=== PATIENT | female | born 1955 | race Caucasian/White ===

== ENCOUNTER → 2017-05-02 12:44 | Outpatient (CLI) | payer MEDICARE, SELFPAY ==
[2017-05-02 14:17] LABS: Absolute Lymphocyte Count 2.21 X10^3/ul (0.83-4.51); Absolute Neutrophil Count 3.6 X10^3/uL (2.0-7.7); Basophil# 0.05 X10^3/uL; Basophil% 0.7 % (0-1); Eosinophil# 0.59 X10^3/uL; Eosinophils% 8.2 % (0-5); Hematocrit 41.3 % (37-47); Hemoglobin 13.6 g/dl (12.0-15.0); Lymphocyte # 2.21 X10^3/ul (4.0); Lymphocyte % 30.8 % (19-41); Mean Corp Hgb Conc 32.9 g/gl (32-36); Mean Corpuscular Hgb 31.4 pg (27.0-32.0); Mean Corpuscular Volume 95.4 fL (81-99); Monocyte# 0.67 X10^3/uL; Monocyte% 9.3 % (0-10); Neutrophil # 3.63 X10^3/uL (2.7-7.7); Neutrophil % 50.7 % (47-70); Platelet Count 223 K/mm3 (150-450); RBC Distribution Width CV 12.7 % (11.6-14.6); RBC Distribution Width SD 43.9 fl (35.1-43.9); Red Blood Count 4.33 M/mm3 (4.2-5.4); White Blood Count 7.2 K/mm3 (4.4-11.0)
[2017-05-02 14:22] LABS: POSITIVE COUNT NO; POSITIVE DIFFERENTIAL NO; POSITIVE MORPHOLOGY NO
[2017-05-02 14:45] LABS: ALB/GLOB Ratio 0.8 RATIO (0.9-2.4); AST(SGOT) 14 U/L (15-37); Alanine Aminotransfer ALT/SGPT 24 U/L (13-56); Albumin, Serum 3.5 g/dL (3.2-5.0); Alkaline Phosphatase 66 U/L (45-117); Anion Gap 7 (5-15); BUN 14 mg/dL (7-18); BUN/Creat Ratio 13.9 RATIO (10-20); Calcium,Total 8.7 mg/dL (8.5-10.1); Chloride 110 mmol/L (98-107); Creatinine, Serum 1.01 mg/dL (0.55-1.02); EST Glomerular Filtration Rate 59 mL/min (>60); Est Glom Filt Rate - Afr Amer 71 mL/min (>60); Globulin 4.2 g/dL (2.2-4.2); Glucose 100 mg/dL (74-106); Potassium 4.3 mmol/L (3.5-5.1); Protein, Total 7.7 g/dL (6.4-8.2); Sodium Level 140 mmol/L (136-145)
== END ==
PROVIDERS: Family Provider Internal Medicine Infectious Disease; PCP Internal Medicine Infectious Disease; Visit Provider Internal Medicine Rheumatology
DX: M06.89 Other specified rheumatoid arthritis, multiple sites (principal); M79.7 Fibromyalgia; G56.01 Carpal tunnel syndrome, right upper limb; M18.12 Unilateral primary osteoarthritis of first carpometacarpal joint, left hand; Z79.899 Other long term (current) drug therapy
CPT/HCPCS: 36415; 80053; 85025

== ENCOUNTER → 2017-07-04 10:41 | Outpatient (CLI) | payer MEDICARE, SELFPAY ==
[2017-07-04 11:25] LABS: Absolute Lymphocyte Count 2.06 X10^3/ul (0.83-4.51); Absolute Neutrophil Count 3.5 X10^3/uL (2.0-7.7); Basophil# 0.09 X10^3/uL; Basophil% 1.3 % (0-1); Eosinophil# 0.47 X10^3/uL; Eosinophils% 6.7 % (0-5); Hematocrit 38.7 % (37-47); Hemoglobin 12.9 g/dl (12.0-15.0); Lymphocyte # 2.06 X10^3/ul (4.0); Lymphocyte % 29.4 % (19-41); Mean Corp Hgb Conc 33.3 g/gl (32-36); Mean Corpuscular Hgb 31.5 pg (27.0-32.0); Mean Corpuscular Volume 94.4 fL (81-99); Mean Platelet Vol. 10.3 fl (6.2-12.0); Monocyte# 0.88 X10^3/uL; Monocyte% 12.6 % (0-10); Neutrophil # 3.48 X10^3/uL (2.7-7.7); Neutrophil % 49.7 % (47-70); Platelet Count 231 K/mm3 (150-450); RBC Distribution Width CV 12.7 % (11.6-14.6)
[2017-07-04 11:28] LABS: Differential Indicated SCAN CRITERIA MET; POSITIVE COUNT NO; POSITIVE DIFFERENTIAL NO; POSITIVE MORPHOLOGY YES
[2017-07-04 11:47] LABS: ALB/GLOB Ratio 0.9 RATIO (0.9-2.4); AST(SGOT) 16 U/L (15-37); Alanine Aminotransfer ALT/SGPT 20 U/L (13-56); Albumin, Serum 3.6 g/dL (3.2-5.0); Alkaline Phosphatase 66 U/L (45-117); Anion Gap 4 (5-15); BUN 14 mg/dL (7-18); BUN/Creat Ratio 13.5 RATIO (10-20); Calcium,Total 8.8 mg/dL (8.5-10.1); Chloride 110 mmol/L (98-107); Creatinine, Serum 1.04 mg/dL (0.55-1.02); EST Glomerular Filtration Rate 57 mL/min (>60); Est Glom Filt Rate - Afr Amer 69 mL/min (>60); Globulin 3.9 g/dL (2.2-4.2); Glucose 84 mg/dL (74-106); Potassium 3.9 mmol/L (3.5-5.1); Protein, Total 7.5 g/dL (6.4-8.2); Sodium Level 139 mmol/L (136-145)
== END ==
PROVIDERS: Family Provider Internal Medicine Infectious Disease; PCP Internal Medicine Infectious Disease; Visit Provider Internal Medicine Rheumatology
DX: M06.09 Rheumatoid arthritis without rheumatoid factor, multiple sites (principal); M79.7 Fibromyalgia; G56.01 Carpal tunnel syndrome, right upper limb; M18.12 Unilateral primary osteoarthritis of first carpometacarpal joint, left hand; K21.0 Gastro-esophageal reflux disease with esophagitis; I10 Essential (primary) hypertension; E11.9 Type 2 diabetes mellitus without complications; F41.9 Anxiety disorder, unspecified; E78.5 Hyperlipidemia, unspecified; K57.90 Diverticulosis of intestine, part unspecified, without perforation or abscess without bleeding; I25.10 Atherosclerotic heart disease of native coronary artery without angina pectoris; G62.9 Polyneuropathy, unspecified; Z79.899 Other long term (current) drug therapy
CPT/HCPCS: 36415; 80053; 85025

== ENCOUNTER → 2017-10-02 13:37 | Outpatient (CLI) | payer MEDICARE, SELFPAY ==
[2017-10-02 13:59] LABS: Absolute Lymphocyte Count 1.93 X10^3/ul (0.83-4.51); Absolute Neutrophil Count 4.3 X10^3/uL (2.0-7.7); Basophil# 0.05 X10^3/uL; Basophil% 0.7 % (0-1); Eosinophil# 0.42 X10^3/uL; Eosinophils% 5.7 % (0-5); Hematocrit 37.1 % (37-47); Hemoglobin 12.3 g/dl (12.0-15.0); Lymphocyte # 1.93 X10^3/ul (4.0); Lymphocyte % 26.2 % (19-41); Mean Corp Hgb Conc 33.2 g/gl (32-36); Mean Corpuscular Hgb 30.8 pg (27.0-32.0); Monocyte# 0.65 X10^3/uL; Monocyte% 8.8 % (0-10); Neutrophil # 4.32 X10^3/uL (2.7-7.7); Neutrophil % 58.5 % (47-70); POSITIVE COUNT NO; POSITIVE DIFFERENTIAL NO; POSITIVE MORPHOLOGY NO; Platelet Count 224 K/mm3 (150-450); RBC Distribution Width CV 12.6 % (11.6-14.6); Red Blood Count 3.99 M/mm3 (4.2-5.4); White Blood Count 7.4 K/mm3 (4.4-11.0)
[2017-10-02 15:01] LABS: ALB/GLOB Ratio 0.9 RATIO (0.9-2.4); AST(SGOT) 12 U/L (15-37); Alanine Aminotransfer ALT/SGPT 18 U/L (13-56); Albumin, Serum 3.4 g/dL (3.2-5.0); Alkaline Phosphatase 74 U/L (45-117); Anion Gap 7 (5-15); BUN 11 mg/dL (7-18); Calcium,Total 8.6 mg/dL (8.5-10.1); Chloride 112 mmol/L (98-107); Creatinine, Serum 0.92 mg/dL (0.55-1.02); EST Glomerular Filtration Rate 66 mL/min (>60); Est Glom Filt Rate - Afr Amer 80 mL/min (>60); Globulin 3.9 g/dL (2.2-4.2); Glucose 79 mg/dL (74-106); Potassium 3.9 mmol/L (3.5-5.1); Protein, Total 7.3 g/dL (6.4-8.2); Sodium Level 146 mmol/L (136-145)
== END ==
PROVIDERS: Family Provider Internal Medicine Infectious Disease; PCP Internal Medicine Infectious Disease; Visit Provider Internal Medicine Rheumatology
DX: M06.09 Rheumatoid arthritis without rheumatoid factor, multiple sites (principal); M79.7 Fibromyalgia; G56.01 Carpal tunnel syndrome, right upper limb; M18.12 Unilateral primary osteoarthritis of first carpometacarpal joint, left hand; K21.0 Gastro-esophageal reflux disease with esophagitis; Z79.899 Other long term (current) drug therapy
CPT/HCPCS: 36415; 80053; 85025

== ENCOUNTER → 2018-04-02 15:11 | Outpatient (CLI) | payer MEDICARE, SELFPAY ==
--- NOTE | 2018-04-02 15:18 | RAD_ITS ---
STUDY: X-RAY - RIGHT SHOULDER REASON FOR EXAM: Rheumatoid arthritis. TECHNIQUE: 4 view(s) of the shoulder. COMPARISON: None. FINDINGS: Normal glenohumeral articulation. There is mild acromioclavicular arthrosis. Normal acromion. Normal humeral head and visualized proximal humerus. The soft tissue structures are unremarkable. Normal visualized pulmonary apex. RAD/Shoulder min 2 Views IMPRESSION: Mild acromioclavicular arthrosis. Electronically Signed: Fredis Flynn MD at 15:33 EST Tel , Service support ,
[2018-04-02 17:57] LABS: Absolute Lymphocyte Count 1.81 X10^3/ul (0.83-4.51); Absolute Neutrophil Count 4.1 X10^3/uL (2.0-7.7); Basophil# 0.07 X10^3/uL; Eosinophils% 8.2 % (0-5); Hematocrit 38.3 % (37-47); Hemoglobin 12.2 g/dl (12.0-15.0); Lymphocyte # 1.81 X10^3/ul (4.0); Lymphocyte % 24.7 % (19-41); Mean Corp Hgb Conc 31.9 g/gl (32-36); Mean Corpuscular Volume 94.1 fL (81-99); Mean Platelet Vol. 10.5 fl (6.2-12.0); Monocyte# 0.79 X10^3/uL; Monocyte% 10.8 % (0-10); Neutrophil # 4.05 X10^3/uL (2.7-7.7); Neutrophil % 55.2 % (47-70); Platelet Count 218 K/mm3 (150-450); RBC Distribution Width SD 44.8 fl (35.1-43.9); Red Blood Count 4.07 M/mm3 (4.2-5.4); White Blood Count 7.3 K/mm3 (4.4-11.0)
[2018-04-02 18:01] LABS: POSITIVE COUNT NO; POSITIVE DIFFERENTIAL NO; POSITIVE MORPHOLOGY NO
[2018-04-02 18:04] LABS: AST(SGOT) 8 U/L (15-37); Alanine Aminotransfer ALT/SGPT 13 U/L (13-56); Albumin, Serum 3.6 g/dL (3.2-5.0); Alkaline Phosphatase 76 U/L (45-117); Anion Gap 9 (5-15); BUN 13 mg/dL (7-18); BUN/Creat Ratio 14.8 RATIO (10-20); Calcium,Total 8.9 mg/dL (8.5-10.1); Chloride 110 mmol/L (98-107); Creatinine, Serum 0.88 mg/dL (0.55-1.02); EST Glomerular Filtration Rate 69 mL/min (>60); Est Glom Filt Rate - Afr Amer 84 mL/min (>60); Globulin 3.6 g/dL (2.2-4.2); Glucose 68 mg/dL (74-106); Protein, Total 7.2 g/dL (6.4-8.2); Sodium Level 145 mmol/L (136-145)
[2018-04-05 03:07] LABS: QNTFERON TB Mitogen Value > 10.00 IU/mL (.); QNTFERON TB Nil Value 0.06 IU/mL (.); QNTFERON TB1+ Ag Value 0.05 IU/mL (.); QNTFERON TB2+ Ag Value 0.05 IU/mL (.)
[2018-04-07 09:08] LABS: QNTIFERON TB Positive Criteria Negative (Negative)
--- OUTSIDE RECORDS SUMMARY | 2018-06-04 17:45 | XMS RPT_ITS ---
:1955 Author Organization OHIP Support Name Relationship Address Phone JUAN BAILEY Unavailable [address] [place] [id number] CYN MAURICE Unavailable Unavailable + NOT GIVEN Unavailable Unavailable Unavailable D Unavailable Unavailable Unavailable JUAN BAILEY Unavailable [address] + [place] [address] JUAN BAILEY Unavailable [address] [place] [facility] [id number] KAYLENE CYN Unavailable Unavailable + NOT GIVEN Unavailable Unavailable Unavailable JUAN BAILEY Unavailable [address] [place] [id number] KAYLENE CYN Unavailable Unavailable + NOT GIVEN Unavailable Unavailable Unavailable NOT GIVEN Unavailable Unavailable Unavailable NOT GIVEN Unavailable Unavailable Unavailable JUAN BAILEY Unavailable [address] [place] [address] KAYLENE CYN Unavailable Unavailable + NOT GIVEN Unavailable Unavailable Unavailable JUAN BAILEY Unavailable [address] [place] [address] KAYLENE CYN Unavailable Unavailable + NOT GIVEN Unavailable Unavailable Unavailable D Unavailable Unavailable Unavailable JUAN BAILEY Unavailable [address] + [place] [address] JUAN BAILEY Unavailable [address] [place] [address] KAYLENE CYN Unavailable Unavailable + NOT GIVEN Unavailable Unavailable Unavailable JUAN BAILEY Unavailable [address] [place] [address] KAYLENE CYN Unavailable Unavailable + NOT GIVEN Unavailable Unavailable Unavailable JUAN BAILEY Unavailable [address] Unavailable [facility] [place] [address] KAYLENE CYN Unavailable Unavailable + NOT GIVEN Unavailable Unavailable Unavailable D Unavailable Unavailable Unavailable JUAN BAILEY Unavailable [address] + [place] [address] D Unavailable Unavailable Unavailable JUAN BAILEY Unavailable [address] + [place] [address] JUAN BAILEY Unavailable [address] [place] [address] CYN MAURICE Unavailable Unavailable + NOT GIVEN Unavailable Unavailable Unavailable Care Team Providers Name Role Phone DR RIZWAN ROSS Admitting Unavailable VANDANA, DR RIZWAN Griffith Attending Unavailable DR RIZWAN ROSS Primary Care Unavailable RUFINA GERARD MD Consulting Unavailable PROVIDER, UNKNOWN Consulting Unavailable PROVIDER, UNKNOWN Consulting Unavailable PROVIDER, UNKNOWN Consulting Unavailable RUFINA GERARD MD Admitting Unavailable RUFINA GERARD MD Attending Unavailable RUFINA GERARD MD Primary Care Unavailable RUFINA GERARD MD Consulting Unavailable PROVIDER, UNKNOWN Consulting Unavailable PROVIDER, UNKNOWN Consulting Unavailable PROVIDER, UNKNOWN Consulting Unavailable RUFINA GERARD MD Admitting Unavailable RUFINA GERARD MD Attending Unavailable RUFINA GERARD MD Primary Care Unavailable RUFINA GERARD MD Consulting Unavailable PROVIDER, UNKNOWN Consulting Unavailable PROVIDER, UNKNOWN Consulting Unavailable PROVIDER, UNKNOWN Consulting Unavailable RUFINA GERARD MD Admitting Unavailable RUFINA GERARD MD Attending Unavailable RUFINA GERARD MD Primary Care Unavailable RUFINA GERARD MD Consulting Unavailable PROVIDER, UNKNOWN Consulting Unavailable PROVIDER, UNKNOWN Consulting Unavailable PROVIDER, UNKNOWN Consulting Unavailable RUFINA GERARD MD Referring Unavailable RUFINA GERARD MD Admitting Unavailable RUFINA GERARD MD Attending Unavailable RUFINA GERARD MD Primary Care Unavailable RUFINA GERARD MD Consulting Unavailable PROVIDER, UNKNOWN Consulting Unavailable PROVIDER, UNKNOWN Consulting Unavailable PROVIDER, UNKNOWN Consulting Unavailable JAMAL REYES MD Admitting Unavailable JAMAL REYES MD Attending Unavailable JAMAL REYES MD Primary Care Unavailable RUFINA GERARD MD Consulting Unavailable PROVIDER, UNKNOWN Consulting Unavailable PROVIDER, UNKNOWN Consulting Unavailable PROVIDER, UNKNOWN Consulting Unavailable ADILENE WARREN MD Admitting Unavailable ADILENE WARREN MD Attending Unavailable ADILENE WARREN MD Primary Care Unavailable RUFINA GERARD MD Consulting Unavailable PROVIDER, UNKNOWN Consulting Unavailable PROVIDER, UNKNOWN Consulting Unavailable PROVIDER, UNKNOWN Consulting Unavailable JAMAL REYES MD Admitting Unavailable JAMAL REYES MD Attending Unavailable JAAML REYSE MD Primary Care Unavailable RUFINA GERARD MD Consulting Unavailable PROVIDER, UNKNOWN Consulting Unavailable PROVIDER, UNKNOWN Consulting Unavailable PROVIDER, UNKNOWN Consulting Unavailable ADILENE WARREN MD Admitting Unavailable ADILENE WARREN MD Attending Unavailable ADILENE WARREN MD Primary Care Unavailable ADILENE WARREN MD Consulting Unavailable PROVIDER, UNKNOWN Consulting Unavailable PROVIDER, UNKNOWN Consulting Unavailable PROVIDER, UNKNOWN Consulting Unavailable FELICIA GODINEZ Admitting Unavailable FELICIA GODINEZ Attending Unavailable ADILENE WARREN MD Referring Unavailable FELICIA GODINEZ Primary Care Unavailable ADILENE WARREN MD Consulting Unavailable PROVIDER, UNKNOWN Consulting Unavailable PROVIDER, UNKNOWN Consulting Unavailable PROVIDER, UNKNOWN Consulting Unavailable RUFINA GERARD MD Consulting Unavailable ADILENE WARREN MD Admitting Unavailable ADILENE WARREN MD Attending Unavailable ADILENE WARREN MD Primary Care Unavailable PROVIDER, UNKNOWN Consulting Unavailable PROVIDER, UNKNOWN Consulting Unavailable PROVIDER, UNKNOWN Consulting Unavailable Jamal Reyes Attending Unavailable Jamal Reyes Referring Unavailable OMRAN, YASSER Primary Care Unavailable Jamal Reyes Attending Unavailable Alvinlangurdeep, Jamal Referring Unavailable OMRAN, YASSER Primary Care Unavailable Jamal Reyes Attending Unavailable Alvinlangurdeep, Jamal Referring Unavailable OMRAN, YASSER Primary Care Unavailable Jamal Reyes Attending Unavailable Vellangurdeep, Jamal Referring Unavailable OMRAN, YASSER Primary Care Unavailable PROBLEMS PROBLEMS DATE TYPE CONDITION / CODE ATTENDING STATUS SOURCE 04/02/2018 Unknown M06.09 - Rheumatoid Eric, Active [place] arthritis without [facility] rheumatoid factor, Hospital multiple sites / Repository M06.09(ICD-10) 04/02/2018 Unknown Z79.899 - Other long Alvinlangurdeep, Active [place] term (current) drug [facility] therapy / Hospital Z79.899(ICD-10) Repository 04/02/2018 Unknown M79.7 - Fibromyalgia Alvinlangurdeep, Active [facility] / M79.7(ICD-10) [facility] Hospital Repository 04/02/2018 Unknown M18.12 - Unilateral Vellanki, Active [place] primary [facility] osteoarthritis of Hospital first Repository carpometacarpal joint, left hand / M18.12(ICD-10) 04/02/2018 Unknown K21.0 - Vellangurdeep, Active [place] Gastro-esophageal [facility] reflux disease with Hospital esophagitis / Repository K21.0(ICD-10) 04/02/2018 Unknown I10 - Essential Vellanki, Active [facility] (primary) [facility] hypertension / Hospital I10(ICD-10) Repository 04/02/2018 Unknown E11.9 - Type 2 Vellanki, Active [place] diabetes mellitus [facility] without Hospital complications / Repository E11.9(ICD-10) 04/02/2018 Unknown F41.9 - Anxiety Vellanki, Active [place] disorder, [facility] unspecified / Hospital F41.9(ICD-10) Repository 03/14/2018 Secondary Type 2 diabetes LATOUF, BUTROS Active Daniel [facility] Diagnosis mellitus without [facility] complications / Hospital E119(ICD-10) Repository 03/14/2018 Principle Essential (primary) LATOUF, BUTROS Active Daniel [facility] Diagnosis hypertension / [facility] I10(ICD-10) Hospital Repository 03/14/2018 Secondary Hyperlipidemia, LATOUF, BUTROS Active [facility] Diagnosis unspecified / [facility] E785(ICD-10) Hospital Repository 03/14/2018 Principle Type 2 diabetes OMJOSEFINA, AMARJITER Active [facility] Diagnosis mellitus without [facility] complications / Hospital E119(ICD-10) Repository 03/14/2018 Secondary Mixed hyperlipidemia OMRAN, YASSER Active [facility] Diagnosis / E782(ICD-10) [facility] Hospital Repository 10/17/2017 Admitting Chest pain, OMRAN, YASSER Active [facility] Diagnosis unspecified / [facility] R079(ICD-10) Hospital Repository 10/17/2017 Principle Chest pain, OMRAN, YASSER Active [facility] Diagnosis unspecified / [facility] R079(ICD-10) Hospital Repository 09/17/2017 Admitting Encounter for OMRAN, YASSER Active [facility] Diagnosis screening mammogram [facility] malignant Hospital neoplasm of breast / Repository Z1231(ICD-10) 09/17/2017 Principle Encounter for OMRAN, YASSER Active [facility] Diagnosis screening mammogram [facility] malignant Hospital neoplasm of breast / Repository Z1231(ICD-10) 08/07/2017 Admitting Pain in right ROSS, DR REEVES Active [facility] Diagnosis shoulder / [facility] L70626(ICD-10) Hospital Repository 08/07/2017 Principle Radiculopathy, ROSS, DR REEVES Active Daniel Ledezma Diagnosis cervical region / [facility] M5412(ICD-10) Hospital Repository 08/07/2017 Secondary Chronic obstructive VANDANA, DR REEVES Active Daniel Ledezma Diagnosis pulmonary disease, [facility] unspecified / Hospital J449(ICD-10) Repository 08/07/2017 Secondary Personal history of VANDANA, DR REEVES Active Daniel Ledezma Diagnosis nicotine dependence [facility] / E06613(ICD-10) Hospital Repository 08/07/2017 Secondary Atherosclerotic ROSS, 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 right upper limb / Hospital G56.01(ICD-10) Repository 07/04/2017 Unknown E78.5 - Vellanki, Active [place] Hyperlipidemia, 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 unspecified / Hospital G62.9(ICD-10) Repository PROCEDURES PROCEDURES No Procedure Records FoundRESULTS RESULTS URINALYSIS Collected: 04/06/2018 Status: F Source: [facility] 9:05 PM [facility] REPOSITORY TYPE CODE TESTS RESULT OUT OF REFERENCE UNITS RANGE LAB URINALYSIS (LOINC) URINALYSIS Result Comment: URINALYSIS LAB Specimen Type(LOINC) Specimen Type Void LAB Color(LOINC) NORMAL: YELLOW Color YELLOW LAB Clarity(LOINC) NORMAL: CLEAR Clarity clear LAB ph(LOINC) NORMAL: 5.0-8.0 ph 5 LAB Protein(LOINC) NORMAL: NEGATIVE Protein NEG LAB Glucose(LOINC) NORMAL: NORMAL Glucose NORM LAB Ketone(LOINC) NORMAL: NEGATIVE Ketone NEG LAB Bilirubin(LOINC) NORMAL: NEGATIVE Bilirubin NEG LAB Blood(LOINC) NORMAL: NEGATIVE Blood NEG LAB Urobilinog(LOINC) NORMAL: NORMAL Urobilinog NORM LAB Sp [place](LOINC) NORMAL: 1.010-1.030 Sp [place] 1.010 LAB Nitrite(LOINC) NORMAL: NEGATIVE Nitrite NEG LAB Leukocytes(LOINC) NORMAL: NEGATIVE Leukocytes Abnormal 100 LAB Microscopic(LOINC ) Microscopic SEE BELOW Result Comment: MICROSCOPIC LAB Wbc(LOINC) 0-5/hpf Wbc 6-10 LAB Rbc(LOINC) 0-3/hpf Rbc NONE LAB Casts(LOINC) Casts NONE LAB Crystals(LOINC) Crystals NONE LAB Amorphous(LOINC) NONE Amorphous LAB Bacteria(LOINC) Bacteria TRACE LAB Epi Cells(LOINC) Epi Cells MODERATE LAB Mucous(LOINC) Mucous TRACE LAB Yeast(LOINC) Yeast NONE Performed By: #### [id number] #### [facility],[address] [place] [address] CBC Collected: 04/06/2018 Status: F Source: [facility] 6:45 PM [facility] REPOSITORY TYPE CODE TESTS RESULT OUT OF RANGE REFERENCE UNITS LAB CBC(LOINC) CBC Result Comment: CBC-COMPLETE BLOOD COUNT LAB WBC(LOINC) 4.5 - 10.8 x 10EE3/UL WBC 10.5 LAB RBC(LOINC) 4.10 - x 10EE6/UL 5.30 RBC 4.13 LAB HEMOGLOBIN(LOINC) 12.0 - g/dl 16.0 HEMOGLOBIN 12.6 LAB HEMATOCRIT(LOINC) 34.0 - % 46.0 HEMATOCRIT 37.1 LAB MCV(LOINC) 80 - 99 fl MCV 90 LAB MCH(LOINC) 27 - 33 pg MCH 30 LAB MCHC(LOINC) 32 - 36 X10 3 MCHC 34 LAB RDW/CV(LOINC) 12.0 - % 15.6 RDW/CV 13.6 LAB PLATELET(LOINC) 150 - 450 x10EE3/UL PLATELET 265 LAB MPV(LOINC) 6.6 - 10.5 fl MPV 8.4 Result Comment: AUTOMATED DIFFERENTIAL LAB NEUT %(LOINC) 46.0 - 76.0 % NEUT % 62.1 LAB LYMPH %(LOINC) 20.0 - 45.0 % Low LYMPH % 19.0 LAB MONOS %(LOINC) 0.0 - 10.0 % MONOS % 9.4 LAB EO %(LOINC) 0.0 - 7.0 % EO % High 8.7 LAB BASO %(LOINC) 0.0 - 2.0 % BASO % 0.8 LAB Lymph #(LOINC) 0.80 - 2.80 x10EE3/U L Lymph # 2.00 LAB Neut #(LOINC) 1.50 - 7.10 x10EE3/U L Neut # 6.50 LAB [place] #(LOINC) 0.20 - 1.00 x10EE3/U L [place] # 1.00 LAB EO #(LOINC) 0.00 - 0.50 x10EE3/U L EO # High 0.90 LAB Baso #(LOINC) 0.00 - 0.10 x10EE3/U L Baso # 0.10 LAB MANUAL DIFF(LOINC) MANUAL DIFF N/A LAB MORPHOLOGY(LOINC ) MORPHOLOGY N/A Result Comment: {CD] Performed By: #### [id number] #### [facility],[address] [place] [address] BMP WITH EGFR Collected: 04/06/2018 Status: F Source: [facility] 6:45 PM [facility] REPOSITORY TYPE CODE TESTS RESULT OUT OF RANGE REFERENCE UNITS LAB BMP with eGFR(LOINC) BMP with eGFR Result Comment: BASIC METABOLIC PANEL LAB SODIUM(LOINC) 136 - 145 mmol/l SODIUM 139 LAB POTASSIUM(LOINC) 3.5 - 5.1 mmol/L POTASSIUM 3.8 LAB CHLORIDE(LOINC) 98 - 107 mmol/L CHLORIDE High 110 LAB CO2(LOINC) 21.0 - mmol/L 31.0 CO2 Low 20.7 LAB GLUCOSE(LOINC) 74 - 106 mg/dl GLUCOSE 82 LAB BUN(LOINC) 6 - 20 mg/dl BUN High 23 LAB CREATININE(LOINC) 0.6 - 1.2 mg/dl CREATININE 0.8 LAB CALCIUM(LOINC) 8.6 - mg/dl 10.2 CALCIUM 9.3 LAB ANION GAP(LOINC) 10 - 20 mmol/L ANION GAP 12 LAB AGE(LOINC) years AGE 63 LAB eGFR(LOINC) 60 - 999 ML/MINUTE eGFR >60 LAB eGFR(AA)(LOINC) 60 - 999 ML/MINUTE eGFR(AA) >60 Result Comment: ACCORDING TO THE NATIONAL KIDNEY DISEASE EDUCATION PROGRAM(NKDE), A NORMAL eGFR IS A VALUE GREATER THAN OR EQUAL TO 60 ML/MIN/1.73 SQ METERS. CHRONIC KIDNEY DISEASE: <60mL/MIN/1.73 SQ METERS KIDNEY FAILURE: <15mL/MIN/1.73 SQ METERS THIS TEST SHOULD ONLY BE USED FOR PATIENTS 18 YEARS OF AGE AND OLDER. Performed By: #### [id number] #### [facility],[address] [place] [address] CT KUB (KIDNEY STONE Observed: 04/06/2018 Status: F Source: [facility] PROTOCOL) 6:38 PM [place] [address] Patient: SHANIA BAILEY Phone#: : 1955 Age: 63 Gender: F Pt. Type: ER Account: [id number] Location: [facility] Ordering: DR. FELICIA MAR Exam Date: 04/06/2018/18:31 Family Phys: ADILENE WARREN Charge Code: 723654 Physician: Glenn Order #: [id number] DLP Dose#: PROCEDURE: CT ABDOMEN AND PELVIS WITHOUT CONTRAST COMPARISON: [facility], CT, KUB W/O CON, 08/31/2013, 15:50. INDICATIONS: Flank pain TECHNIQUE: After obtaining the patient's consent, CT images of the abdomen and pelvis were created without non-ionic intravenous contrast material. All CT scans at this facility use dose modulation, iterative reconstruction, and/or weight based dosing when appropriate to reduce radiation dose to as low as reasonably achievable. IV CONTRAST: No IV contrast used,ml TOTAL DOSE: 14.9 CTDIvol(mGy) FINDINGS: Evaluation of the solid organs and soft tissues is limited without intravenous contrast. KIDNEYS: No nephrolithiasis or hydronephrosis. The kidneys are unremarkable in contour. ADRENALS: Normal. No mass or enlargement. URINARY BLADDER: Urinary bladder is decompressed. LIVER: Unremarkable in contour. BILIARY: Gallbladder is absent, surgical clips are in the gallbladder fossa. PANCREAS: Unremarkable in contour. SPLEEN: Unremarkable in contour. AORTA/VASCULAR: No aortic aneurysm. There is stable ectasia of the distal infrarenal aorta. There are atherosclerotic calcifications of the aorta and branch vessels. RETROPERITONEUM: Limited evaluation for adenopathy in the absence of contrast though none identified. BOWEL/MESENTERY: No bowel obstruction or dilatation. Moderate degree of stool throughout the colon. Continued Report - Page 2 of 2 Patient: SHANIA BAILEY Phone#: : 1955 Age: 63 Gender: F Pt. Type: ER Account: [id number] Location: 052 Ordering: DR. FELICIA MAR Exam Date: 04/06/2018/18:31 Family Phys: ADILENE WARREN Charge Code: [id number] Physician: Glenn Order #: [id number] DLP Dose#: ABDOMINAL WALL: Midline ventral hernia containing fat, the opening of the abdominal defect measures 1.7 x 1.4 cm. A second smaller inferior defect measures 1.1 x 1.1 cm. Similar to prior. PELVIC NODES: Normal. No adenopathy. PELVIC ORGANS: Uterus is absent. No adnexal masses. BONES: Degenerative changes of the lower lumbar spine. LUNG BASES: Normal. No visible pulmonary or pleural disease. OTHER: Negative. CONCLUSION: 1. No nephrolithiasis or hydronephrosis. Within the limits of a noncontrast exam no appreciable acute intra-abdominal or pelvic abnormality. Dictated by: Lana Lockhart MD on 04/07/2018 at 12:52 Approved by: Lana Lockhart MD on 04/07/2018 at 12:52 CBC W/DIFF, AUTOMATED Collected: 04/02/2018 Status: F Source: [facility] 3:25 PM REPOSITORY TYPE CODE TESTS RESULT OUT OF RANGE REFERENCE UNITS LAB L100.1000 4.4-11.0 K/mm3 Normal WBC 7.3 LAB L100.1200 4.2-5.4 M/mm3 Low RBC 4.07 LAB L100.1300 12.0-15.0 g/dl Normal HGB 12.2 LAB L100.1400 37-47 % Normal HCT 38.3 LAB L100.1500 81-99 fL Normal MCV 94.1 LAB L100.1600 27.0-32.0 pg Normal MCH 30.0 LAB L100.1700 32-36 g/gl Low MCHC 31.9 LAB L100.1810 11.6-14.6 % Normal RDW CV 13.0 LAB L100.1820 35.1-43.9 fl High RDW SD 44.8 LAB L100.1900 150-450 K/mm3 Normal PLT 218 LAB L100.2000 6.2-12.0 fl Normal MPV 10.5 LAB L100.2100 47-70 % Normal NEUT% 55.2 LAB L100.2200 19-41 % Normal LY% 24.7 LAB L100.2300 0-10 % High MONO% 10.8 LAB L100.2400 0-5 % High EO% 8.2 LAB L100.2500 0-1 % Normal BASO% 1.0 LAB L100.2550 0.0-0.9 % Normal IM GRAN % 0.100 Result Comment: IG% - Immature Granulocytes (promyelocytes, myelocytes and metamyelocytes) > 1% indicates that a LEFT SHIFT is Present. LAB L100.2620 2.0-7.7 X10 3/uL Normal Absolute Neut 4.1 LAB L100.2720 0.83-4.51 X10 3/ul Normal Absolute Lymph 1.81 Performed By: #### L100.0100 #### [facility] [address] [place], [address] COMPREHENSIVE METABOLIC Collected: 04/02/2018 Status: F Source: [facility] 3:25 PM REPOSITORY TYPE CODE TESTS RESULT OUT OF RANGE REFERENCE UNITS LAB L501.0100 74-106 mg/dL Low GLU 68 Result Comment: Please note revised GLUCOSE reference range effective 2017. LAB L501.1000 7-18 mg/dL Normal BUN 13 LAB L501.1100 0.55-1.02 mg/dL Normal CREAT,SERUM 0.88 Result Comment: The validity of the calculated GFR AND GFRAA in patients over 70 years has not been determined. Clinical correlation is essential. LAB L501.1110 >60 mL/min Normal EST GFR 69 Result Comment: Non- GFR Calc LAB L501.1115 >60 mL/min Normal EST GFR - AA 84 Result Comment: GFR Calc LAB L501.1300 10-20 RATIO Normal BUN/CRE 14.8 LAB L501.1500 6.4-8.2 g/dL T Normal PROT 7.2 LAB L501.1800 3.2-5.0 g/dL Normal ALB 3.6 LAB L501.1950 2.2-4.2 g/dL Normal GLOB 3.6 LAB L501.2000 0.9-2.4 RATIO Normal A/G 1.0 LAB L501.2200 8.5-10.1 mg/dL CA Normal 8.9 LAB L501.4100 15-37 U/L Low AST 8 LAB L501.4305 45-117 U/L Normal ALK P 76 LAB L501.4405 13-56 U/L Normal ALT 13 LAB L501.4600 0.20-1.00 mg/dL T Normal BILI 0.30 LAB L501.5300 136-145 mmol/L NA Normal 145 LAB L501.5600 3.5-5.1 mmol/L K Normal 4.0 LAB L501.5900 98-107 mmol/L High CL 110 LAB L501.6100 21.0-32.0 mmol/L Normal CO2 26.0 LAB L501.6200 5-15 Normal GAP 9 Performed By: #### L500.4050 #### [facility] [address] [place], [address] QUANTIFERON TB-GOLD+ Collected: 04/02/2018 Status: F Source: [facility] 3:25 PM REPOSITORY TYPE CODE TESTS RESULT OUT OF RANGE REFERENCE UNITS LAB L3400.8025 . Normal QFT TB Comment GOLD Result Comment: The QuantiFERON-TB Gold Plus result is determined by subtracting the Nil value from either TB antigen (Ag) tube. The mitogen tube serves as a control for the test. LAB L3400.8035 . IU/mL Normal QFT TB1+ AG 0.05 [facility] LAB L3400.8045 . IU/mL Normal QFT TB2+ AG 0.05 [facility] LAB L3400.8055 . IU/mL Normal QFT NIL VALUE 0.06 LAB L3400.8065 . IU/mL Normal QFT MITOGEN > 10.00 [facility] LAB L3400.8075 Negative Normal QFT TB POS Negative CRIT Result Comment: The specimen received for QuantiFERON testing was incubated by the ordering institution. Specific procedures outlined in our Directory of Services and in the package insert for the QuantiFERON Gold (In Tube) test must be followed to enable for proper stimulation of cells for the production of interferon gamma. Performed at: - [facility] [address] [id number] [employer]er: Basim Bolden PhD, Phone: [phone] Performed By: #### L3400.8000 #### [facility] (refer to report for specific site) refer to report for address and phone number SHOULDER MIN 2 VIEWS Observed: 04/02/2018 Status: F Source: [facility] 3:19 PM REPOSITORY [facility] Imaging Services [address] [place] [id number] Shoulder min 2 Views MR#: [id number] Acct: [id number] Name: SHANIA BAILEY Rep #: [id number] : 1955 F 63 From: Fredis Flynn MD PCP: Rufina Gerard Status: REG CLI Study: Shoulder min 2 Views Date of Exam: 04/02/18 Exam# [id number] Ordering Dr: Jamal Reyes MD STUDY: X-RAY - RIGHT SHOULDER REASON FOR EXAM: Rheumatoid arthritis. TECHNIQUE: 4 view(s) of the shoulder. COMPARISON: None. FINDINGS: Normal glenohumeral articulation. There is mild acromioclavicular arthrosis. Normal acromion. Normal humeral head and visualized proximal humerus. The soft tissue structures are unremarkable. Normal visualized pulmonary apex. RAD/Shoulder min 2 Views IMPRESSION: Mild acromioclavicular arthrosis. Electronically Signed: Fredis Flynn MD at 15:33 EST Tel , Service support , CC: Jamal Reyes MD; Rufina Gerard Farm Boss: Signed CBC Collected: 12/26/2017 Status: F Source: [facility] 2:15 PM [facility] REPOSITORY TYPE CODE TESTS RESULT OUT OF RANGE REFERENCE UNITS LAB CBC(LOINC) CBC Result Comment: CBC-COMPLETE BLOOD COUNT LAB WBC(LOINC) 4.5 - 10.8 x 10EE3/UL WBC 8.1 LAB RBC(LOINC) 4.10 - x 10EE6/UL 5.30 RBC 4.15 LAB HEMOGLOBIN(LOINC) 12.0 - g/dl 16.0 HEMOGLOBIN 12.9 LAB HEMATOCRIT(LOINC) 34.0 - % 46.0 HEMATOCRIT 36.6 LAB MCV(LOINC) 80 - 99 fl MCV 88 LAB MCH(LOINC) 27 - 33 pg MCH 31 LAB MCHC(LOINC) 32 - 36 X10 3 MCHC 35 LAB RDW/CV(LOINC) 12.0 - % 15.6 RDW/CV 13.2 LAB PLATELET(LOINC) 150 - 450 x10EE3/UL PLATELET 213 LAB MPV(LOINC) 6.6 - 10.5 fl MPV 8.9 Result Comment: AUTOMATED DIFFERENTIAL LAB NEUT %(LOINC) 46.0 - 76.0 % NEUT % 58.4 LAB LYMPH %(LOINC) 20.0 - 45.0 % LYMPH % 24.9 LAB MONOS %(LOINC) 0.0 - 10.0 % MONOS % High 10.2 LAB EO %(LOINC) 0.0 - 7.0 % EO % 5.5 LAB BASO %(LOINC) 0.0 - 2.0 % BASO % 1.0 LAB Lymph #(LOINC) 0.80 - 2.80 x10EE3/U L Lymph # 2.00 LAB Neut #(LOINC) 1.50 - 7.10 x10EE3/U L Neut # 4.70 LAB [place] #(LOINC) 0.20 - 1.00 x10EE3/U L [place] # 0.80 LAB EO #(LOINC) 0.00 - 0.50 x10EE3/U L EO # 0.40 LAB Baso #(LOINC) 0.00 - 0.10 x10EE3/U L Baso # 0.10 LAB MANUAL DIFF(LOINC) MANUAL DIFF N/A LAB MORPHOLOGY(LOINC ) MORPHOLOGY N/A Result Comment: {CD] Performed By: #### [id number] #### [facility],[address] [place] [address] CMP WITH EGFR Collected: 12/26/2017 Status: F [facility] REPOSITORY TYPE CODE TESTS RESULT OUT OF RANGE REFERENCE UNITS LAB CMP with eGFR(LOINC) CMP with eGFR Result Comment: COMPREHENSIVE METABOLIC PANEL LAB SODIUM(LOINC) 136 - 145 mmol/l SODIUM 140 LAB POTASSIUM(LOINC) 3.5 - 5.1 mmol/L POTASSIUM 4.1 LAB CHLORIDE(LOINC) 98 - 107 mmol/L CHLORIDE High 108 LAB CO2(LOINC) 21.0 - mmol/L 31.0 CO2 24.2 LAB GLUCOSE(LOINC) 74 - 106 mg/dl GLUCOSE 97 LAB BUN(LOINC) 6 - 20 mg/dl BUN 19 LAB CREATININE(LOINC) 0.6 - 1.2 mg/dl CREATININE 1.0 LAB AST/SGOT(LOINC) 13 - 39 U/L AST/SGOT Low 10 LAB ALK PHOS(LOINC) 38 - 126 U/L ALK PHOS 67 LAB CALCIUM(LOINC) 8.6 - mg/dl 10.2 CALCIUM 9.5 LAB TOTAL 6.4 - 8.3 g/dl PROTEIN(LOINC) TOTAL PROTEIN 7.3 LAB ALBUMIN(LOINC) 3.4 - 4.8 g/dL ALBUMIN 4.0 LAB GLOBULIN(LOINC) 1.5 - 3.8 G/DL GLOBULIN 3.3 LAB A/G RATIO(LOINC) 0.9 - 1.6 A/G RATIO 1.2 LAB TOTAL BILI(LOINC) 0.0 - 1.5 mg/dl TOTAL BILI 0.3 LAB B/C RATIO(LOINC) 0 - 30 ratio B/C RATIO 19 LAB ALT/SGPT(LOINC) 8 - 35 U/L ALT/SGPT 8 LAB ANION GAP(LOINC) 10 - 20 mmol/L ANION GAP 12 LAB AGE(LOINC) years AGE 62 LAB eGFR(LOINC) 60 - 999 ML/MINUTE eGFR Low 56 LAB eGFR(AA)(LOINC) 60 - 999 ML/MINUTE eGFR(AA) >60 Result Comment: ACCORDING TO THE NATIONAL KIDNEY DISEASE EDUCATION PROGRAM(NKDE), A NORMAL eGFR IS A VALUE GREATER THAN OR EQUAL TO 60 ML/MIN/1.73 SQ METERS. CHRONIC KIDNEY DISEASE: <60mL/MIN/1.73 SQ METERS KIDNEY FAILURE: <15mL/MIN/1.73 SQ METERS THIS TEST SHOULD ONLY BE USED FOR PATIENTS 18 YEARS OF AGE AND OLDER. Performed By: #### [id number] #### [facility],[address] [place], [place] [address] DISCHARGE SUMMARY Observed: 10/22/2017 Status: F Source: [facility] 3:54 PM [facility] DISCHARGE SUMMARY NAME ACCOUNT SEX AGE ADMIT DISCHARGE PT MED. RECORD# NUMBER DATE DATE KIRSTEN BAILEY [id number] F 62 10/17/17 10/18/17 2 SHANIA Joshua [id number] ROOM: 301AK DATE OF : 1955 DICTATING PHYSICIAN: Rufina Gerard ADMITTING DIAGNOSIS: Chest pain. FINAL DIAGNOSES: 1. Atypical chest pain, reproducible. 2. Rheumatoid arthritis. HISTORY OF PRESENT ILLNESS: This is a 62-year-old female with multiple medical problems, including coronary artery disease, rheumatoid arthritis followed by Rheumatology, fibromyalgia, obesity and diabetes mellitus type 2, who the day before admission started experiencing right-sided chest pain, worse when she was trying to go to bed and worse with activity. No trauma. She came to the Emergency Room. She has some chronic shortness of breath; it was not worsened. Initial cardiac markers were negative. She was admitted for an observation stay. HOSPITAL COURSE: For a full history and physical, please see chart. For brief summary, see below. She had a stress test and echocardiogram in March of 2017, which were reviewed. She had no signs of acute coronary syndrome. The chest pain was on the right side of her chest, reproducible. She was admitted overnight. Troponins and EKG were negative, and she was placed on prednisone 20 mg and continued on tramadol for pain. Upon evaluation this morning, she is feeling much better. The chest pain has improved significantly. Blood pressure is 118/73, heart rate 57, respirations 18, temperature 98.2, and oxygen saturation 94% on room air. Lungs are clear to auscultation bilaterally. Heart is a regular rate and rhythm. The area on the right side of the chest, the pain was significantly reduced. She will go home on prednisone 20 mg for 3 days. She has 10 mg tablets at home, and she will utilize these. She states she has plenty at home. She will follow up in the office. Discharge instructions were discussed with her in detail. All of her questions were answered. She verbalized understanding of the plan. MEDICATIONS ON DISCHARGE: (1) Prednisone 20 mg daily for 3 days. All other medications are as at home, including: (2) Tramadol 100 mg 3 times a day p.r.n. (3) Tizanidine 4 mg 3 times a day p.r.n. (4) Calcium with vitamin D one tablet daily. (5) Duloxetine 60 mg daily. (6) Gabapentin 800 mg 4 times daily. (7) DuoNeb treatment 4 times daily p.r.n. (8) MiraLax 17 g in water daily. (9) Ventolin inhaler 2 puffs every 4 Page 1 of 2 SHANIA BAILEY Discharge Summary A hours p.r.n. (10) Vitamin C 500 mg daily. (11) Prednisone 10 mg daily p.r.n. (12) Metoprolol succinate 100 mg daily. (13) Multivitamin one tab daily. (14) Nitroglycerin 0.4 mg sublingual p.r.n. chest pain. (15) Pantoprazole 40 mg daily. (16) Topiramate 100 mg twice daily. (17) B complex one tab daily. (18) Wellbutrin SR 150 mg twice daily. (19) BuSpar 10 mg twice daily. (20) Sertraline 100 mg daily. (21) Advair Diskus one puff twice daily. (22) Atorvastatin 40 mg daily. (23) Plavix 75 mg daily. (24) Flonase 2 sprays in each nostril daily. (25) Glucosamine chondroitin one tab daily. (26) Humira subcutaneous every other week. (27) Hydroxychloroquine 200 mg twice daily. (28) Leflunomide 20 mg daily. (29) Losartan 25 mg daily. (30) Magnesium 1000 mg daily. (31) Aspirin 81 mg daily. (32) Metformin 1000 mg daily. DISCHARGE INSTRUCTIONS/PLAN: Increase activity as tolerated. [id number] diet. Follow up with Yahaira Llamas on October 31, 2017, at 1:20 p.m. I evaluated the patient myself,The above E&M is accurate reflection of the work done by me Yung Gerard M.D. Dictated by natali Sim for Dr. Gerard. Dictated By: Rufina Gerard MD 10/18/17 15:27 JOB #: [id number] Transcribed By: camilla 10/19/17 07:24 Electronically signed by: TANIA GERARD MD 10/22/17 15:54 Page 2 of 2 SHANIA BAILEY Discharge Summary A HISTORY AND PHYSICAL Observed: 10/22/2017 Status: F Source: [facility] EXAM 3:51 PM [facility] HISTORY & PHYSICAL NAME ACCOUNT SEX AGE ADMIT DISCHARGE PT MED. RECORD# NUMBER DATE DATE TYPE LEO [id number] F 62 10/17/17 2 SHANIA Joshua [id number] ROOM: 301AK DATE OF : 55 DICTATING PHYSICIAN: Rufina Gerard Time seen is 1 p.m. CHIEF COMPLAINT: Chest pain. HISTORY OF PRESENT ILLNESS: This is a 62-year-old female with multiple medical problems including coronary artery disease, anxiety, fibromyalgia with rheumatoid arthritis, lung nodule, hypertension, and hyperlipidemia. She was in the emergency room today after not being able to sleep since about 2:30 in the morning when she experienced right-sided chest pain, which went into her back. She denied any trauma. She has been under increased amount of stress. She stated that she gets short of breath. The pain was constant. It was worse with movement or lying down, and she came to the hospital with initial cardiac markers negative. Upon evaluation, she stated the pain was worse when she touched it. The Percocet did help in the emergency room. PAST MEDICAL HISTORY: (1) Coronary artery disease. (2) Anxiety. (3) Obesity. (4) Asthma. The patient had a pulmonary function test on January 25, 2016 which revealed asthma. (5) Depression. (6) Constipation. (7) Diabetes mellitus type 2. (8) Hypertension. (9) GERD. 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 (11) Lung nodule for which the patient is followed by a clinical appeals specialist. (12) Hyperlipidemia with hypertriglyceridemia. (13) Peripheral neuropathy. (14) Obstructive sleep apnea. The patient does not use her CPAP. (15) Hemorrhoids. (16) Rheumatoid arthritis with fibromyalgia. (17) Diverticulitis. (18) Periodic limb movements. (19) Peripheral vascular disease. (20) Previous history of deep venous thrombosis. (21) Postnasal drip. (22) Chest pain in the past with negative stress test completed March of 2017. PAST SURGICAL HISTORY: (1) Appendectomy. (2) Cholecystectomy. (3) Coronary artery bypass graft in 2000. (4) Abdominal hysterectomy. (5) Tonsillectomy. (6) Bilateral carpal tunnel release. (7) Left thumb trigger surgery. MEDICATIONS: Current medications at home: (1) Advair Diskus 250/50 1 inhalation twice daily. (2) Aspirin 81 mg daily. (3) Atorvastatin 40 mg daily. (4) Calcium with vitamin D 600 mg daily. (5) Plavix 75 mg daily. (6) Duloxetine 60 mg daily. (7) Flonase 2 sprays each nostril daily. (8) Gabapentin 800 mg 4 times daily. (9) Glucosamine chondroitin 1 tablet daily. (10) Humira by injection every other week. (11) Hydroxychloroquine 200 mg twice daily. (12) DuoNeb treatments 4 times daily as needed. (13) Leflunomide 20 mg daily. (14) Losartan 25 mg daily. (15) Magnesium Page 1 of 4 SHANIA BAILEY History & Physical A 1000 mg daily. (16) Metformin 1000 mg daily. (17) Metoprolol succinate 100 mg daily. (18) Multivitamin 1 tablet daily. (20) Nitroglycerin 0.4 mg sublingual p.r.n. chest pain. (21) Pantoprazole 40 mg daily. (22) MiraLAX 17 grams in H2O daily. (23) Sertraline 100 mg daily. (24) Topiramate 100 mg twice daily. (25) Ventolin inhaler 2 puffs every 4 hours p.r.n. (26) Vitamin C 500 mg daily. (27) B complex 1 tablet daily. (28) Wellbutrin extended release 150 mg twice daily. (29) Buspar 10 mg twice daily. (30) Prednisone 10 mg daily p.r.n. She has not had to take this for many months. (31) Zanaflex 4 mg every 8 hours p.r.n. (32) Tramadol 100 mg 3 times daily p.r.n. ALLERGIES: Numerous including Reglan, codeine, methotrexate, Niacin, pramipexole, tape, Niaspan, and sulfa. FAMILY HISTORY: Father from myocardial infarction. Mother at age 45 from metastatic adenocarcinoma. SOCIAL HISTORY: The patient is and lives at home with her spouse. She has 2 children, 1 living and 1 daughter that at age 38 unexpectedly. The patient used to be a smoker for 40 years, 1 pack of cigarette per day. She quit many years ago. She does not drink alcohol. REVIEW OF SYSTEMS: Denies any dizziness, lightheadedness, fever, or chills. No recent respiratory infection. She does have chronic shortness of breath. The chest pain she had at this time is on the right side. It started yesterday. No trauma. It goes to her back, worse with movement or lying on it. The rest of the review of systems were discussed and were negative. PHYSICAL EXAMINATION GENERAL APPEARANCE: The patient was sitting up in no acute distress. She is alert, pleasant, cooperative, well-nourished, and well-developed obese female. VITAL SIGNS: Blood pressure 115/76, heart rate 59, respirations 18, temperature 97.9, oxygen saturation 93% on room air, weight 180 pounds. HEENT: Unremarkable. NECK: Neck is supple. No nodes, masses, or JVD. No bruits. LUNGS: Normal respiratory effort, equal lung expansion, clear to auscultation bilaterally. SKIN: Warm and dry. No rashes noted. HEART: Regular rate and rhythm with no murmurs or gallops appreciated. CHEST: Revealed reproducible pain in the right upper chest. Page 2 of 4 SHANIA BAILEY History & Physical A ABDOMEN: Obese, soft, and nontender. EXTREMITIES: Free of edema, cyanosis, or clubbing. NEUROLOGIC: She is alert and oriented. Mood, affect, and memory within normal limits. Speech is clear, and she is able to answer questions appropriately. DIAGNOSTIC DATA: Laboratory data: White count is 6.9, hemoglobin 11.7, hematocrit 34.4. D-dimer is 162. Magnesium is 1.9. BNP is 143. Troponins are negative so far x2. CMP revealed glucose of 127 nonfasting; otherwise, unremarkable. Diagnostic studies: Previous negative stress test was reviewed from March of 2017, as well as echocardiogram. CT of the chest was completed in the emergency room with PE protocol indicating no pulmonary embolism. IMPRESSION/PLAN: 1. Atypical chest pain. She was admitted to the hospital with significant history of coronary artery disease and multiple risk factors; however, her chest pain is reproducible and she also has a history of significant rheumatoid arthritis and fibromyalgia. So far, her troponins are negative. We will complete the series, as well as EKG, place her on telemetry. We will not repeat the stress test or echocardiogram due to recent testing. She is on statin, nitrates, beta blockers, aspirin, and Plavix, as well as Losartan. 2. Severe rheumatoid arthritis with fibromyalgia. Pain was not controlled at home on her current regimen. We will place her on prednisone 20 mg daily for 3 days, continue Tramadol. She did discuss Percocet. I had a long discussion with her regarding the potential side effects of narcotics including respiratory depression and . She is a poor candidate for this level of narcotic. She has untreated obstructive sleep apnea as well. 3. Insomnia. We will start melatonin 9 mg at bedtime, which she can continue at home. 4. Multiple chronic medical problems appear stable at present. The plan is for her to be admission on observation basis rule out for coronary event and stabilize her pain. She will be discharged home tomorrow if stable. Above was discussed with the patient. All of her questions were answered. She verbalized understanding of the plan. I evaluated the patient myself,The above E&M is accurate reflection of the work done by me Yung Gerard M.D. Dictated by natali Sim for Rufina Gerard M.D. 10/17/17 21:38 JOB #: [id number] Transcribed By: am 10/17/17 21:43 Electronically signed by: TANIA GERARD MD Page 3 of 4 SHANIA BAILEY History & Physical A 10/22/17 15:51 Update to H&P: [ ] No changes: I have examined the patient and reviewed the H&P and there are no changes. [ ] As previously dictated with the following changes: PHYSICIAN SIGNATURE: TIME: DATE: Page 4 of 4 SHANIA BAILEY History & Physical A EMERGENCY REPORT Observed: 10/21/2017 Status: F [facility] 7:49 AM [facility] EMERGENCY ROOM REPORT NAME ACCOUNT SEX AGE ADMIT DISCHARGE PT MED. RECORD# NUMBER DATE DATE TYPE LEO, [id number] F 62 10/17/17 2 SHANIA Joshua [id number] ROOM: 301MO DATE OF : 1955 DICTATING PHYSICIAN: Renée Mina HISTORY OF PRESENT ILLNESS: The patient came in complaining of chest pain, more on the right side. She denies any trauma. She has been under a lot of stress recently. Her daughter in March. She said she gets short of breath at times. PAST MEDICAL HISTORY: She has had a history of pulmonary embolism, coronary artery disease. She has had bypass surgery, asthma. She has diabetes. PAST SURGICAL HISTORY: She has had an appendectomy, cholecystectomy, bypass surgery, and hysterectomy. SOCIAL HISTORY: She is a reformed smoker. She does not drink alcohol. REVIEW OF SYSTEMS: Ten systems reviewed and negative except as mentioned above. PHYSICAL EXAMINATION: The patient is afebrile. Pulse 59, respirations 20, blood pressure 143/91, and pulse ox 95% on room air. Head is normocephalic and atraumatic. Eyes: Pupils are equal, round, and reactive to light. Extraocular muscles intact. Nares are patent. Throat has adequate moisture. Uvula is midline. Neck is supple without petechiae or rash. Heart without murmur. S1 equals S2. No S3 or S4 appreciated. Lungs are clear to auscultation bilaterally. No rales, rhonchi, or retractions. Abdomen is soft, nontender, and nondistended. Skin is warm and dry. DIAGNOSTIC DATA: D-dimer is normal. Troponin is normal. The patient had a bicarbonate of 25, glucose 127, BUN 14, creatinine 0.8, sodium 142, magnesium 1.9. EKG showed a rate of 56, normal axis. She did have T wave inversion in V1 through V4, which she has had on an old EKG of August 07, 2017. The patient had a CT of the chest since she had the pain that went through to her back. She had no PE. No obvious dissection. Chemistries were unremarkable. EMERGENCY DEPARTMENT COURSE AND TREATMENT/PLAN/DISPOSITION: Page 1 of 2 LEO, Emergency Room Report SHANIA A The patient will be admitted to the hospital. She took aspirin prior to arrival. Dictated By: Renée Mina DO 10/17/17 11:30 JOB #: [id number] Transcribed By: am 10/17/17 14:09 Electronically signed by: TANIA Mina D.O. 10/21/17 07:46 Page 2 of 2 LEO, Emergency Room Report SHANIA Joshua LIPID PROFILE Collected: 10/18/2017 Status: F Source: [facility] 4:31 AM [facility] REPOSITORY TYPE CODE TESTS RESULT OUT OF REFERENCE UNITS RANGE LAB LIPID PROFILE(LOIN C) LIPID PROFILE Result Comment: LIPID PROFILE LAB TRIGLYCERIDE(LOINC) 0 - 150 mg/dl High TRIGLYCERIDE 439 LAB CHOLESTEROL(LOINC) 0 - 200 mg/dl CHOLESTEROL 121 LAB HDL(LOINC) 40 - 60 mg/dl HDL Low 28 LAB CHOL/HDL(LOINC) 0.0 - 5.0 CHOL/HDL 4.3 LAB LDL(LOINC) 0 - 129 mg/dl LDL N/A Performed By: #### [id number] #### [place] [id number] TROPONIN Collected: 10/17/2017 Status: F Source: [facility] 8:20 PM [facility] REPOSITORY TYPE CODE TESTS RESULT OUT OF REFERENCE UNITS RANGE LAB TROPONIN 0.00 - 0.05 ng/ml I(LOINC) TROPONIN I <0.01 Result Comment: Elevated troponin (above the 99th percentile) usually indicates myocardial ischemia. Results must be interpreted within the clinical setting. 1.Non-ischemic pathology can also cause elevated troponin levels (e.g., acute pulmonary embolism, myocarditis, pericarditis, heart failure, intracranial injury, rhabdomyolisis, sepsis, shock and renal insufficiency). 2.Approximately 1% of healthy adults have elevated troponin levels. 3.Analytical false positive results rarely occur(due to multiple interferences such as heterophile antibodies). Performed By: #### [id number] #### [place] [id number] TROPONIN Collected: 10/17/2017 Status: F Source: [facility] 2:50 PM [facility] REPOSITORY TYPE CODE TESTS RESULT OUT OF REFERENCE UNITS RANGE LAB TROPONIN 0.00 - 0.05 ng/ml I(LOINC) TROPONIN I <0.01 Result Comment: Elevated troponin (above the 99th percentile) usually indicates myocardial ischemia. Results must be interpreted within the clinical setting. 1.Non-ischemic pathology can also cause elevated troponin levels (e.g., acute pulmonary embolism, myocarditis, pericarditis, heart failure, intracranial injury, rhabdomyolisis, sepsis, shock and renal insufficiency). 2.Approximately 1% of healthy adults have elevated troponin levels. 3.Analytical false positive results rarely occur(due to multiple interferences such as heterophile antibodies). Performed By: #### [id number] #### [address] [id number] TROPONIN Collected: 10/17/2017 Status: F Source: [facility] 12:02 PM [facility] REPOSITORY TYPE CODE TESTS RESULT OUT OF REFERENCE UNITS RANGE LAB TROPONIN 0.00 - 0.05 ng/ml I(LOINC) TROPONIN I <0.01 Result Comment: Elevated troponin (above the 99th percentile) usually indicates myocardial ischemia. Results must be interpreted within the clinical setting. 1.Non-ischemic pathology can also cause elevated troponin levels (e.g., acute pulmonary embolism, myocarditis, pericarditis, heart failure, intracranial injury, rhabdomyolisis, sepsis, shock and renal insufficiency). 2.Approximately 1% of healthy adults have elevated troponin levels. 3.Analytical false positive results rarely occur(due to multiple interferences such as heterophile antibodies). Performed By: #### [id number] #### [place] [address] CT CHEST (PE PROTOCOL) Observed: 10/17/2017 Status: F Source: [facility] 10:06 AM [place] [address] Patient: SHANIA BAILEY Phone#: : [phone] Age: 62 Gender: F Pt. Type: ER Account: [id number] Location: [facility] Ordering: RENÉE MIAN Exam Date: 10/17/2017/9:52 Family Phys: RUFINA GERARD Charge Code: [id number] Physician: Glenn Order #: [id number] DLP Dose#: PROCEDURE: CT CHEST WITH CONTRAST FOR PE COMPARISON: [facility], CT, CHEST PE W CON, 04/06/2017, 17:34. INDICATIONS: Chest pain TECHNIQUE: After obtaining the patient's consent, CT images were obtained with non-ionic intravenous contrast material. Multi-planar images were created to optimize visualization of vascular anatomy with MPR/MIPS and 3D imaging. All CT scans at this facility use dose modulation, iterative reconstruction, and/or weight based dosing when appropriate to reduce radiation dose to as low as reasonably achievable. IV CONTRAST: Omnipaque 350,74ml TOTAL DOSE: 9.1 CTDIvol(mGy) FINDINGS: VASCULATURE: Normal. No visible pulmonary arterial thrombus or attenuation. AORTA: Normal. No aneurysm or dissection. LUNGS: There is a calcified granuloma in the left apex. No acute pulmonary parenchymal abnormality. GARRET: Normal. No mass or adenopathy. MEDIASTINUM: Normal. No mass or adenopathy. CARDIAC: Normal. No enlargement, pericardial thickening, or significant calcification. PLEURA: Normal. No mass or effusion. CHEST WALL: Normal. No mass or axillary adenopathy. LIMITED ABDOMEN: Moderate degree of stool seen throughout the visualized portion of colon. BONES: Normal. No bony lesion or fracture. OTHER: Median sternotomy wires are present. CONCLUSION: Continued Report - Page 2 of 2 Patient: SHANIA BAILEY Phone#: : [phone] Age: 62 Gender: F Pt. Type: ER Account: [id number] Location: 052 Ordering: RENÉE MINA Exam Date: 10/17/2017/9:52 Family Phys: RUFINA GERARD Charge Code: [id number] Physician: Glenn Order #: [id number] DLP Dose#: 1. No pulmonary embolism. No acute pulmonary parenchymal abnormality. Dictated by: Lana Lockhart MD on 10/17/2017 at 10:37 Approved by: Lana Lockhart MD on 10/17/2017 at 10:37 CBC Collected: 10/17/2017 Status: F Source: [facility] 8:55 AM [facility] REPOSITORY TYPE CODE TESTS RESULT OUT OF RANGE REFERENCE UNITS LAB CBC(LOINC) CBC Result Comment: CBC-COMPLETE BLOOD COUNT LAB WBC(LOINC) 4.5 - 10.8 x 10EE3/UL WBC 6.9 LAB RBC(LOINC) 4.10 - x 10EE6/UL 5.30 RBC Low 3.81 LAB HEMOGLOBIN(LOINC) 12.0 - g/dl 16.0 Low HEMOGLOBIN 11.7 LAB HEMATOCRIT(LOINC) 34.0 - % 46.0 HEMATOCRIT 34.4 LAB MCV(LOINC) 80 - 99 fl MCV 90 LAB MCH(LOINC) 27 - 33 pg MCH 31 LAB MCHC(LOINC) 32 - 36 X10 3 MCHC 34 LAB RDW/CV(LOINC) 12.0 - % 15.6 RDW/CV 13.2 LAB PLATELET(LOINC) 150 - 450 x10EE3/UL PLATELET 173 LAB MPV(LOINC) 6.6 - 10.5 fl MPV 9.4 Result Comment: AUTOMATED DIFFERENTIAL LAB NEUT %(LOINC) 46.0 - 76.0 % NEUT % 57.0 LAB LYMPH %(LOINC) 20.0 - 45.0 % LYMPH % 24.4 LAB MONOS %(LOINC) 0.0 - 10.0 % MONOS % 10.0 LAB EO %(LOINC) 0.0 - 7.0 % EO % High 8.3 LAB BASO %(LOINC) 0.0 - 2.0 % BASO % 0.3 LAB Lymph #(LOINC) 0.80 - 2.80 x10EE3/U L Lymph # 1.70 LAB Neut #(LOINC) 1.50 - 7.10 x10EE3/U L Neut # 3.90 LAB [place] #(LOINC) 0.20 - 1.00 x10EE3/U L [place] # 0.70 LAB EO #(LOINC) 0.00 - 0.50 x10EE3/U L EO # High 0.60 LAB Baso #(LOINC) 0.00 - 0.10 x10EE3/U L Baso # 0.00 LAB MANUAL DIFF(LOINC) MANUAL DIFF N/A LAB MORPHOLOGY(LOINC ) MORPHOLOGY N/A Result Comment: {CD] Performed By: #### [id number] #### [place] [id number] TROPONIN Collected: 10/17/2017 Status: F Source: [facility] 8:55 AM [facility] REPOSITORY TYPE CODE TESTS RESULT OUT OF REFERENCE UNITS RANGE LAB TROPONIN 0.00 - 0.05 ng/ml I(LOINC) TROPONIN I <0.01 Result Comment: Elevated troponin (above the 99th percentile) usually indicates myocardial ischemia. Results must be interpreted within the clinical setting. 1.Non-ischemic pathology can also cause elevated troponin levels (e.g., acute pulmonary embolism, myocarditis, pericarditis, heart failure, intracranial injury, rhabdomyolisis, sepsis, shock and renal insufficiency). 2.Approximately 1% of healthy adults have elevated troponin levels. 3.Analytical false positive results rarely occur(due to multiple interferences such as heterophile antibodies). Performed By: #### [id number] #### [place] [id number] CMP WITH EGFR Collected: 10/17/2017 Status: F Source: [facility] 8:55 AM [facility] REPOSITORY TYPE CODE TESTS RESULT OUT OF RANGE REFERENCE UNITS LAB CMP with eGFR(LOINC) CMP with eGFR Result Comment: COMPREHENSIVE METABOLIC PANEL LAB SODIUM(LOINC) 136 - 145 mmol/l SODIUM 142 LAB POTASSIUM(LOINC) 3.5 - 5.1 mmol/L POTASSIUM 3.9 LAB CHLORIDE(LOINC) 98 - 107 mmol/L CHLORIDE High 110 LAB CO2(LOINC) 21.0 - mmol/L 31.0 CO2 24.5 LAB GLUCOSE(LOINC) 74 - 106 mg/dl GLUCOSE High 127 LAB BUN(LOINC) 6 - 20 mg/dl BUN 14 LAB CREATININE(LOINC) 0.6 - 1.2 mg/dl CREATININE 0.8 LAB AST/SGOT(LOINC) 13 - 39 U/L AST/SGOT Low 8 LAB ALK PHOS(LOINC) 38 - 126 U/L ALK PHOS 54 LAB CALCIUM(LOINC) 8.6 - mg/dl 10.2 CALCIUM 9.0 LAB TOTAL 6.4 - 8.3 g/dl PROTEIN(LOINC) TOTAL PROTEIN 6.5 LAB ALBUMIN(LOINC) 3.4 - 4.8 g/dL ALBUMIN 3.7 LAB GLOBULIN(LOINC) 1.5 - 3.8 G/DL GLOBULIN 2.8 LAB A/G RATIO(LOINC) 0.9 - 1.6 A/G RATIO 1.3 LAB TOTAL BILI(LOINC) 0.0 - 1.5 mg/dl TOTAL BILI 0.2 LAB B/C RATIO(LOINC) 0 - 30 ratio B/C RATIO 18 LAB ALT/SGPT(LOINC) 8 - 35 U/L ALT/SGPT Low 7 LAB ANION GAP(LOINC) 10 - 20 mmol/L ANION GAP 11 LAB AGE(LOINC) years AGE 62 LAB eGFR(LOINC) 60 - 999 ML/MINUTE eGFR >60 LAB eGFR(AA)(LOINC) 60 - 999 ML/MINUTE eGFR(AA) >60 Result Comment: ACCORDING TO THE NATIONAL KIDNEY DISEASE EDUCATION PROGRAM(NKDE), A NORMAL eGFR IS A VALUE GREATER THAN OR EQUAL TO 60 ML/MIN/1.73 SQ METERS. CHRONIC KIDNEY DISEASE: <60mL/MIN/1.73 SQ METERS KIDNEY FAILURE: <15mL/MIN/1.73 SQ METERS THIS TEST SHOULD ONLY BE USED FOR PATIENTS 18 YEARS OF AGE AND OLDER. Performed By: #### [id number] #### [facility],[address] [place], [place] [id number] MAGNESIUM Collected: 10/17/2017 Status: F Source: [facility] 8:55 AM [facility] REPOSITORY TYPE CODE TESTS RESULT OUT OF REFERENCE UNITS RANGE LAB MAGNESIUM( 1.6 - 2.6 mg/dl LOINC) MAGNESIUM 1.9 Performed By: #### [id number] #### [facility],[address] [place], [place] [id number] D-DIMER, QUANTITATIVE Collected: 10/17/2017 Status: F Source: [facility] 8:55 AM [facility] REPOSITORY TYPE CODE TESTS RESULT OUT OF REFERENCE UNITS RANGE LAB D-DIMER, QUANTITATI VE(LOINC) D-DIMER, QUANTITATIVE Result Comment: QUANT D-DIMER LAB D-DIMER QUANT(LOINC) 0 - 230 ng/ml D-DIMER QUANT 162 Performed By: #### [id number] #### [facility],[address] [place], [place] [id number] BNP (B-TYPE NATRIURETIC Collected: 10/17/2017 Status: F [facility] AM [facility] REPOSITORY TYPE CODE TESTS RESULT OUT OF RANGE REFERENCE UNITS LAB BNP(LOINC) 1 - 100 pg/ml High BNP 143 Performed By: #### [id number] #### [address] [address] CBC W/DIFF, AUTOMATED Collected: 10/02/2017 Status: F Source: [facility] 1:43 PM REPOSITORY TYPE CODE TESTS RESULT OUT OF RANGE REFERENCE UNITS LAB L100.1000 4.4-11.0 K/mm3 Normal WBC 7.4 LAB L100.1200 4.2-5.4 M/mm3 Low RBC 3.99 LAB L100.1300 12.0-15.0 g/dl Normal HGB 12.3 LAB L100.1400 37-47 % Normal HCT 37.1 LAB L100.1500 81-99 fL Normal MCV 93.0 LAB L100.1600 27.0-32.0 pg Normal MCH 30.8 LAB L100.1700 32-36 g/gl Normal MCHC 33.2 LAB L100.1810 11.6-14.6 % Normal RDW CV 12.6 LAB L100.1820 35.1-43.9 fl Normal RDW SD 42.0 LAB L100.1900 150-450 K/mm3 Normal PLT 224 LAB L100.2000 6.2-12.0 fl Normal MPV 10.0 LAB L100.2100 47-70 % Normal NEUT% 58.5 LAB L100.2200 19-41 % Normal LY% 26.2 LAB L100.2300 0-10 % Normal MONO% 8.8 LAB L100.2400 0-5 % High EO% 5.7 LAB L100.2500 0-1 % Normal BASO% 0.7 LAB L100.2550 0.0-0.9 % Normal IM GRAN % 0.100 Result Comment: IG% - Immature Granulocytes (promyelocytes, myelocytes and metamyelocytes) > 1% indicates that a LEFT SHIFT is Present. LAB L100.2620 2.0-7.7 X10 3/uL Normal Absolute Neut 4.3 LAB L100.2720 0.83-4.51 X10 3/ul Normal Absolute Lymph 1.93 Performed By: #### L100.0100 #### [facility] [address] [place], [place], [address] COMPREHENSIVE METABOLIC Collected: 10/02/2017 Status: F Source: [facility] 1:43 PM REPOSITORY TYPE CODE TESTS RESULT OUT OF RANGE REFERENCE UNITS LAB L501.0100 74-106 mg/dL Normal GLU 79 Result Comment: Please note revised GLUCOSE reference range effective 2017. LAB L501.1000 7-18 mg/dL Normal BUN 11 LAB L501.1100 0.55-1.02 mg/dL Normal CREAT,SERUM 0.92 Result Comment: The validity of the calculated GFR AND GFRAA in patients over 70 years has not been determined. Clinical correlation is essential. LAB L501.1110 >60 mL/min Normal EST GFR 66 Result Comment: Non- GFR Calc LAB L501.1115 >60 mL/min Normal EST GFR - AA 80 Result Comment: GFR Calc LAB L501.1300 10-20 RATIO Normal BUN/CRE 12.0 LAB L501.1500 6.4-8.2 g/dL T Normal PROT 7.3 LAB L501.1800 3.2-5.0 g/dL Normal ALB 3.4 LAB L501.1950 2.2-4.2 g/dL Normal GLOB 3.9 LAB L501.2000 0.9-2.4 RATIO Normal A/G 0.9 LAB L501.2200 8.5-10.1 mg/dL CA Normal 8.6 LAB L501.4100 15-37 U/L Low AST 12 LAB L501.4305 45-117 U/L Normal ALK P 74 LAB L501.4405 13-56 U/L Normal ALT 18 LAB L501.4600 0.20-1.00 mg/dL T Normal BILI 0.20 LAB L501.5300 136-145 mmol/L High NA 146 LAB L501.5600 3.5-5.1 mmol/L K Normal 3.9 LAB L501.5900 98-107 mmol/L High CL 112 LAB L501.6100 21.0-32.0 mmol/L Normal CO2 27.0 LAB L501.6200 5-15 Normal GAP 7 Performed By: #### L500.4050 #### [facility] [address] [facility]. [place], [place], [id number] MAMM DIGITAL BILAT Observed: 09/17/2017 Status: F Source: [facility] SCREEN 11:51 AM [place] [address] Patient: SHANIA BAILEY Phone#: : [phone] Age: 62 Gender: F Pt. Type: Out Account: [id number] Location: 052 Ordering: RUFINA GERARD Exam Date: 09/17/2017/11:40 Family Phys: Charge Code: [id number] Physician: Glenn Order #: [id number] DLP Dose#: PROCEDURE: MAMM BILAT DIGITAL SCREENING WITH CAD COMPARISON: [facility], BILAT SCREENING, 02/01/2016, 14:25. INDICATIONS: Screening BREAST COMPOSITION: Almost entirely fat (<25% glandular). FINDINGS: DIAGNOSTIC CATEGORY 1--NEGATIVE ASSESSMENT. RIGHT BREAST: No significant suspicious finding. No significant change has occurred. LEFT BREAST: No significant suspicious finding. No significant change has occurred. RECOMMENDATIONS: ROUTINE MAMMOGRAM AND CLINICAL EVALUATION. PLEASE NOTE: A NORMAL MAMMOGRAM DOES NOT EXCLUDE THE POSSIBILITY OF BREAST CANCER. A CLINICALLY SUSPICIOUS PALPABLE LUMP SHOULD BE BIOPSIED. THIS FACILITY UTILIZES A REMINDER SYSTEM TO ENSURE THAT ALL PATIENTS RECEIVE REMINDER LETTERS FOR APPOINTMENTS. THIS INCLUDES REMINDERS FOR ROUTINE MAMMOGRAMS, DIAGNOSITC MAMMOGRAMS, OR OTHER BREAST IMAGING INTERVENTIONS WHEN APPROPRIATE. THIS PATIENT WILL BE PLACED IN THE APPROPRIATE REMINDER SYSTEM. Dictated by: Lana Lockhart MD on 09/17/2017 at 11:53 Approved by: Lana Lockhart MD on 09/17/2017 at 11:53 HGB A1C Collected: 09/17/2017 Status: F Source: [facility] 11:42 AM [facility] TYPE CODE TESTS RESULT OUT OF RANGE REFERENCE UNITS LAB HGB 4.4 - 6.4 % A1C(LOINC) HGB A1C 5.0 Result Comment: {HB] {A1] Performed By: #### [id number] #### [facility],[address] [place] [address] EMERGENCY REPORT Observed: 08/12/2017 Status: F Source: [facility] 7:55 AM [facility] EMERGENCY ROOM REPORT NAME ACCOUNT SEX AGE ADMIT DISCHARGE PT MED. RECORD# NUMBER DATE DATE TYPE LEO, [id number] F 62 08/07/17 08/07/17 3 SHANIA Joshua [id number] ROOM: ER DATE OF : 1955 DICTATING PHYSICIAN: Rizwan Ross CHIEF COMPLAINT: Left shoulder pain. HISTORY OF PRESENT ILLNESS: The patient states that since this past weekend, about 5 days ago, developed pain to the left shoulder. It is worse with some movements, moving her neck and head for example makes it worse and some shoulder movements make it worse. It seems to be focused to the top of the shoulder radiating up to the upper and posterior neck area radiating to the shoulder and just distal to the shoulder, but not into the arm. No numbness or tingling to the area. No chest pain. No shortness of breath. The patient states that she had a similar episode several months ago, and was admitted to the hospital at that time. Multiple workups from a cardiac standpoint was unremarkable. PAST MEDICAL HISTORY: Significant for a number of chronic medical problems including diabetes, coronary artery disease, and COPD. PAST SURGICAL HISTORY: She has had appendectomy, cholecystectomy, hysterectomy, coronary artery bypass surgery, orthopedic surgery, and remote tonsillectomy. MEDICATIONS: She is on multiple medications per med rec list. ALLERGIES: She has multiple allergies, per allergy list. SOCIAL HISTORY: She lives at home with her , who accompanies her here. She does not smoke or drink alcohol. PHYSICAL EXAMINATION: This is a 62-year-old heavy built female alert, appropriate, does not appear toxic or in acute distress. Her skin is pale, pink, warm, and dry. HEENT: All normal. She has moderate tenderness with palpation of the posterior left mid to lower cervical area, particularly along the paraspinal musculature. She has tenderness out along the left trapezius out toward the left shoulder. There is no bony crepitus. No focal bony tenderness. Some neck movements increase her pain, but she has no decreased movement. There is no tenderness to palpation at the left shoulder, arm, hand, or fingers. Good peripheral pulses. No focal weaknesses. No chest wall tenderness. Lungs: Clear. Cardiac: Regular rhythm without ectopy, murmurs, gallops, or rubs. Abdomen: Soft and nontender. Vital signs: Temperature 97.8, pulse 99, Page 1 of 2 [place], Emergency Room Report SHANIA A respirations 18, blood pressure 140/114. DIAGNOSTIC DATA: EKG obtained showed no acute abnormalities. I did get cervical spine films which showed significant degenerative changes with foraminal impingement. EMERGENCY DEPARTMENT COURSE AND TREATMENT: The patient presents with symptoms that I feel are most consistent with cervical radiculopathy secondary to nerve impingement. PLAN/DISPOSITION: I discussed management with her. She was in here given an injection of Toradol and some oral Percocet, which did help with her pain, prescriptions for meloxicam, Toradol, and Percocet were given. She is to follow up with her family physician or orthopedic doctor next week if not better, returning if symptoms worsen. Dictated By: Rizwan Ross MD 08/07/17 13:51 JOB #: [id number] Transcribed By: am 08/07/17 19:55 Electronically signed by: TANIA Ross M.D. 08/12/17 07:48 Page 2 of 2 LEO, Emergency Room Report SHANIA Joshua CERVICAL SP COMPLETE, Observed: 08/07/2017 Status: F Source: [facility] 4 OR 5 VIEWS 12:56 PM [place] [id number] Patient: SHANIA BAILEY Phone#: : [phone] Age: 62 Gender: F Pt. Type: ER Account: [id number] Location: 05 Ordering: RIZWAN ROSS Exam Date: 08/07/2017/12:42 Family Phys: RUFINA GERARD Charge Code: [id number] Physician: Glenn Order #: [id number] DLP Dose#: PROCEDURE: X-RAY CERVICAL SPINE W/ AP, LATERAL, ODONTOID, AND OLBIQUES VIEWS COMPARISON: None. INDICATIONS: Pain FINDINGS: BONES: Degenerative changes of the spine are present. Osteophytes are present at the vertebral body endplates. There is severe foraminal impingement on the left at the C3-4 level and on the right at the C4-5 and C6-7 levels. DISC SPACES: Normal. No significant disc height narrowing, subluxation, or endplate abnormality. PARASPINOUS: Negative. No paraspinous abnormality is seen. OTHER: Negative. CONCLUSION: 1. Bilateral foraminal impingement related to vertebral body osteophytes. Dictated by: Christiane Hines MD on 08/07/2017 at 12:59 Approved by: Christiane Hines MD on 08/07/2017 at 12:59 CBC W/DIFF, AUTOMATED Collected: 07/04/2017 Status: F Source: [facility] 10:48 AM REPOSITORY TYPE CODE TESTS RESULT OUT OF RANGE REFERENCE UNITS LAB L100.1000 4.4-11.0 K/mm3 Normal WBC 7.0 LAB L100.1200 4.2-5.4 M/mm3 Low RBC 4.10 LAB L100.1300 12.0-15.0 g/dl Normal HGB 12.9 LAB L100.1400 37-47 % Normal HCT 38.7 LAB L100.1500 81-99 fL Normal MCV 94.4 LAB L100.1600 27.0-32.0 pg Normal MCH 31.5 LAB L100.1700 32-36 g/gl Normal MCHC 33.3 LAB L100.1810 11.6-14.6 % Normal RDW CV 12.7 LAB L100.1820 35.1-43.9 fl Normal RDW SD 43.0 LAB L100.1900 150-450 K/mm3 Normal PLT 231 LAB L100.2000 6.2-12.0 fl Normal MPV 10.3 LAB L100.2100 47-70 % Normal NEUT% 49.7 LAB L100.2200 19-41 % Normal LY% 29.4 LAB L100.2300 0-10 % High MONO% 12.6 LAB L100.2400 0-5 % High EO% 6.7 LAB L100.2500 0-1 % High BASO% 1.3 LAB L100.2550 0.0-0.9 % Normal IM GRAN % 0.300 Result Comment: IG% - Immature Granulocytes (promyelocytes, myelocytes and metamyelocytes) > 1% indicates that a LEFT SHIFT is Present. LAB L100.2620 2.0-7.7 X10 3/uL Normal Absolute Neut 3.5 LAB L100.2720 0.83-4.51 X10 3/ul Normal Absolute Lymph 2.06 LAB L100.4500 Normal SMEAR COMMENT COMMENT Result Comment: SLIDE SCANNED - RARE ATYPICAL LYMPHS SEEN. Performed By: #### L100.0100 #### [facility] [address] [place], [place], [address] COMPREHENSIVE METABOLIC Collected: 07/04/2017 Status: F Source: [facility] 10:48 AM REPOSITORY TYPE CODE TESTS RESULT OUT OF RANGE REFERENCE UNITS LAB L501.0100 74-106 mg/dL Normal GLU 84 Result Comment: Please note revised GLUCOSE reference range effective 2017. LAB L501.1000 7-18 mg/dL Normal BUN 14 LAB L501.1100 0.55-1.02 mg/dL High CREAT,SERUM 1.04 Result Comment: The validity of the calculated GFR AND GFRAA in patients over 70 years has not been determined. Clinical correlation is essential. LAB L501.1110 >60 mL/min Low EST GFR 57 Result Comment: Non- GFR Calc LAB L501.1115 >60 mL/min Normal EST GFR - AA 69 Result Comment: GFR Calc LAB L501.1300 10-20 RATIO Normal BUN/CRE 13.5 LAB L501.1500 6.4-8.2 g/dL T Normal PROT 7.5 LAB L501.1800 3.2-5.0 g/dL Normal ALB 3.6 LAB L501.1950 2.2-4.2 g/dL Normal GLOB 3.9 LAB L501.2000 0.9-2.4 RATIO Normal A/G 0.9 LAB L501.2200 8.5-10.1 mg/dL CA Normal 8.8 LAB L501.4100 15-37 U/L Normal AST 16 LAB L501.4305 45-117 U/L Normal ALK P 66 LAB L501.4405 13-56 U/L Normal ALT 20 LAB L501.4600 0.20-1.00 mg/dL T Normal BILI 0.40 LAB L501.5300 136-145 mmol/L NA Normal 139 LAB L501.5600 3.5-5.1 mmol/L K Normal 3.9 LAB L501.5900 98-107 mmol/L High CL 110 LAB L501.6100 21.0-32.0 mmol/L Normal CO2 25.0 LAB L501.6200 5-15 Low GAP 4 Performed By: #### L500.4050 #### [facility] [address] [facility]. [place], [place], [address] CBC W/DIFF, AUTOMATED Collected: 05/02/2017 Status: F Source: [facility] 12:58 PM REPOSITORY TYPE CODE TESTS RESULT OUT OF RANGE REFERENCE UNITS LAB L100.1000 4.4-11.0 K/mm3 Normal WBC 7.2 LAB L100.1200 4.2-5.4 M/mm3 Normal RBC 4.33 LAB L100.1300 12.0-15.0 g/dl Normal HGB 13.6 LAB L100.1400 37-47 % Normal HCT 41.3 LAB L100.1500 81-99 fL Normal MCV 95.4 LAB L100.1600 27.0-32.0 pg Normal MCH 31.4 LAB L100.1700 32-36 g/gl Normal MCHC 32.9 LAB L100.1810 11.6-14.6 % Normal RDW CV 12.7 LAB L100.1820 35.1-43.9 fl Normal RDW SD 43.9 LAB L100.1900 150-450 K/mm3 Normal PLT 223 LAB L100.2000 6.2-12.0 fl Normal MPV 10.0 LAB L100.2100 47-70 % Normal NEUT% 50.7 LAB L100.2200 19-41 % Normal LY% 30.8 LAB L100.2300 0-10 % Normal MONO% 9.3 LAB L100.2400 0-5 % High EO% 8.2 LAB L100.2500 0-1 % Normal BASO% 0.7 LAB L100.2550 0.0-0.9 % Normal IM GRAN % 0.300 Result Comment: IG% - Immature Granulocytes (promyelocytes, myelocytes and metamyelocytes) > 1% indicates that a LEFT SHIFT is Present. LAB L100.2620 2.0-7.7 X10 3/uL Normal Absolute Neut 3.6 LAB L100.2720 0.83-4.51 X10 3/ul Normal Absolute Lymph 2.21 Performed By: #### L100.0100 #### [facility] [address] [place], [place], [address] COMPREHENSIVE METABOLIC Collected: 05/02/2017 Status: F Source: [facility] 12:58 PM REPOSITORY TYPE CODE TESTS RESULT OUT OF RANGE REFERENCE UNITS LAB L501.0100 74-106 mg/dL Normal GLU 100 Result Comment: Fasting Glucose result from 100 to 125 mg/dL suggests IMPAIRED HOMEOSTASIS per A.D.A. criteria. Please note revised GLUCOSE reference range effective 2017. LAB L501.1000 7-18 mg/dL Normal BUN 14 LAB L501.1100 0.55-1.02 mg/dL Normal CREAT,SERUM 1.01 Result Comment: The validity of the calculated GFR AND GFRAA in patients over 70 years has not been determined. Clinical correlation is essential. LAB L501.1110 >60 mL/min Low EST GFR 59 Result Comment: Non- GFR Calc LAB L501.1115 >60 mL/min Normal EST GFR - AA 71 Result Comment: GFR Calc LAB L501.1300 10-20 RATIO Normal BUN/CRE 13.9 LAB L501.1500 6.4-8.2 g/dL T Normal PROT 7.7 LAB L501.1800 3.2-5.0 g/dL Normal ALB 3.5 LAB L501.1950 2.2-4.2 g/dL Normal GLOB 4.2 LAB L501.2000 0.9-2.4 RATIO Low A/G 0.8 LAB L501.2200 8.5-10.1 mg/dL CA Normal 8.7 LAB L501.4100 15-37 U/L Low AST 14 Result Comment: Slight Hemolysis, Result may be falsely increased. LAB L501.4305 45-117 U/L Normal ALK P 66 LAB L501.4405 13-56 U/L Normal ALT 24 Result Comment: Please note revised ALT reference range effective 2017. LAB L501.4600 0.20-1.00 mg/dL Normal T BILI 0.30 LAB L501.5300 136-145 mmol/L Normal NA 140 LAB L501.5600 3.5-5.1 mmol/L Normal K 4.3 Result Comment: Slight Hemolysis, Result may be falsely increased. LAB L501.5900 98-107 mmol/L High CL 110 LAB L501.6100 21.0-32.0 mmol/L Normal CO2 23.0 LAB L501.6200 5-15 Normal 7 GAP Performed By: #### L500.4050 #### [facility] [address] [place] [address]. [place], [address] DISCHARGE SUMMARY Observed: 04/09/2017 Status: F Source: [facility] 3:11 PM [facility] DISCHARGE SUMMARY NAME NUMBER SEX AGE ADMIT DISC TYPE MED.RECORD# LEO BIRCH [id number] F 62 04/05/17 04/08/17 O/P [id number] ROOM:301MO DATE OF :1955 PHYSICIAN NO.:[id number] PHYSICIAN NAME:Magdalena Warren M.D. PHYSICIAN: FINAL DIAGNOSES: 1. Chest pain with negative stress test. 2. Chronic pain with fibromyalgia and rheumatoid arthritis. 3. HDL deficiency. 4. Hypertriglyceridemia. 5. Multiple chronic medical problems. DIAGNOSTIC DATA: On discharge, white count was 6.4, hemoglobin 12.5, hematocrit 35.5, troponin were negative. TSH 2.29, magnesium 2, BUN 24, creatinine 1.0, sodium 141. Potassium 3.9, glucose 93, urinalysis is negative nitrites with 6-10 WBCs. Chest x-ray AP completed on admission in the emergency room, ready by the radiologist with no acute disease and no significant changes noted. Lexiscan stress test completed ready by Cardiology with no ischemic changes. Echocardiogram completed with ejection fraction of 55-60% with normal right ventricular size and function with no significant valvular heart disease. Prominent fat pad noted, indeterminate diastolic dysfunction with no significant changes since [address] of the chest with PE protocol completed with no evidence of pulmonary embolus with ventricle septal defect present. HOSPITAL COURSE: For full history and physical, please see chart. For brief summary, see below. This is a 62-year-old female with multiple medical problems including coronary artery disease, obesity, anxiety, diabetes mellitus type 2, lung nodule, hyperlipidemia with hypertriglyceridemia, peripheral neuropathy, obstructive sleep apnea who came in with chest pain. She was having intermittent chest discomfort with 10-14 days prior to admission on the left side, radiating to the left arm, left side of the neck and left shoulder. No shortness of breath, no palpitations. The patient got worse after her daughter unexpectedly this year. The chest pain intensifies. She came to the emergency room. Long cardiac history. She was having significant musculoskeletal discomfort; however, with her history she was admitted to rule out ischemic disease. She was placed on telemetry. No acute arrhythmia. Serial troponins and EKGs were negative. She has fibromyalgia, rheumatoid arthritis and Tramadol was discontinued. She was started on [employer]. She has been able to tolerate it in the past. Cymbalta was increased hoping to control her pain better. Blood sugars were monitored. Triglycerides were elevated as well as low HDL. She was recommended on low-fat, low-cholesterol diet. She has not been using her CPAP since her daughter , and she will have outpatient followup on this. Today, on the day of discharge, she continues with some shoulder pain with movement. No chest pain, no shortness of breath. Blood pressure 119/77, heart rate 64, respirations 18, temperature 97.8, oxygen saturation 94% on room air. Heart has regular rate and rhythm. Lungs clear to auscultation bilaterally. Discharge was discussed with the patient. All of her questions were answered. She verbalized understanding of the plan. She was discharged home in stable condition with the above instructions. MEDICATIONS ON DISCHARGE: (1) Hydrocodone/acetaminophen 5/325 one tablet q4h p.r.n. for [id number] pain #20 with no refills given. (2) Cymbalta was increased to 60 mg b.i.d. All other medications are as at home including: (3) Tizanidine 4 mg q8h p.r.n. (4) Buspirone 10 mg b.i.d. (5) Prednisone 10 mg daily p.r.n. (6) Advair Diskus 250/50 one puff b.i.d. (7) Atorvastatin 40 mg qpm. (8) Vitamin C 500 one tablet daily. (9) Calcium citrate with D one tablet daily. (10) Plavix 75 daily. (11) Flonase 2 sprays each nostril daily (12) Gabapentin 800 mg t.i.d. (13) Glucosamine Chondroitin one tablet daily. (14) Humira 40 mg/0.8 mL one subcutaneous every other week. (15) Hydroxychloroquine 200 mg b.i.d. (16) DuoNeb treatment p.r.n. (17) Leflunomide 20 mg daily. (18) Losartan 25 mg daily. (19) Magnesium 1000 mg daily. (20) Metoprolol succinate 100 mg daily. (21) Multivitamin one daily. (22) Nitroglycerin 0.4 mg p.r.n. (23) Miralax 17 grams in H2O as needed. (24) Pantoprazole 40 mg daily. (25) Sertraline 100 mg daily. (26) Topiramate 100 mg b.i.d. (27) Ventolin inhaler 2 puffs 4 times daily p.r.n. (28) B complex one tablet daily. (29) Bupropion XR 150 mg b.i.d. (30) Metformin 1000 mg daily. (31) Aspirin 81 mg daily. DISCHARGE INSTRUCTIONS/PLAN: Increase activity as tolerated, low fat, low cholesterol, no-added salt diet. She has sleep followup with Dr. Warren on April 11, 2017 at 3:40 pm and a followup appointment with her primary care doctor, Dr. Gerard, on May 03, 2017 at 2 pm. She should discuss long-term pain management with Dr. Gerard and Dr. Reyes. Dictated by natali Sim for Adilene Warren M.D. I personally evaluated and examined the patient and agree with above note that reflects my visit to the patient and my decision making. Adilene Warren MD TD: 13:46 JOB #: [id number] Electronically signed by: Magdalena Warren M.D. 04/09/17 15:11 Transcribed by: donald 04/09/2017 09:34 EMERGENCY DEPARTMENT Observed: 04/09/2017 Status: F Source: [facility] SUMMARY 9:07 AM [facility] EMERGENCY DEPARTMENT SUMMARY NAME NUMBER SEX AGE ADMIT DISC TYPE MED.RECORD# [place] SHANIA [id number] F 62 04/05/17 O/P [id number] ROOM:301MO DATE OF :1955 PHYSICIAN NO.:[id number] PHYSICIAN NAME:Magdalena Warren M.D. PHYSICIAN: HISTORY OF PRESENT ILLNESS: The patient is a 62-year-old female who presents for chest discomfort. The patient states that she has had left sided chest pain that has been intermittent for 1 weeks. The patient states it is somewhat exertional. She states that the pain is a sharp stabbing sensation of the left chest that radiates into her left arm. The patient states that nothing makes it better. Exertion does make it slightly worse. The patient states she did have an NV in 2000 with a CABG. The patient states she has had multiple stress tests, however does not recall the last time she has had one. The patient states she has had no other associated symptoms and came to the ED as it is not getting any better. PAST MEDICAL HISTORY: Diabetes, NV, hypertension, depression, anxiety. PAST SURGICAL HISTORY: Tonsillectomy, CABG, appendectomy, cholecystectomy, hysterectomy. MEDICATIONS: Please see medication list. ALLERGIES: Numerous. Please see allergy list. SOCIAL HISTORY: She does not smoke or drink any longer. REVIEW OF SYSTEMS: Positive for left chest discomfort. The remainder of the review of systems is unremarkable. PHYSICAL EXAMINATION: VITAL SIGNS: Temperature 97.5, pulse 77, respirations 18, blood pressure 128/78, oxygen saturation 96% on room air. CONSTITUTIONAL: No acute distress, alert and oriented, nontoxic appearing. CARDIAC: Regular rate and rhythm. Negative for murmurs, rubs or gallops. Positive S1, S2. PULMONARY: Clear to auscultation bilaterally. Negative for wheezes, rales or crackles. ABDOMEN: Soft, nontender and nondistended. Normal bowel sounds in all 4 quadrants. Negative for Aviles's or McBurney's. MSK: Normal radial and DP pulses bilaterally. Negative for lower extremity edema, ulcerations, or skin breakdown. DIAGNOSTIC DATA: CBC was normal. Troponin less than 0.01. CMP is unremarkable. Chest x-ray was unremarkable. EKG did show T wave inversions in the anterior leads V1 through V4, however on reevaluation from previous EKGs, this is unchanged. Remainder of the EKG was unremarkable. Negative for ST elevations or depressions or acute STEMI. EMERGENCY DEPARTMENT COURSE AND TREATMENT: The patient at this time is on multiple medications, has a history of NV, diabetes and new onset chest pain. The patient had a HEART score of 4 based on her story, age and comorbidities. Given the fact the patient has a questionable history, we have elected to admit the patient to the hospital. The patient was given aspirin 324 mg while in the ED. DIAGNOSIS: Chest pain. PLAN/DISPOSITION: At this time the patient's vital signs are normal and stable. She is nontoxic appearing and has been admitted to the hospital. The patient was agreeable and amenable to this plan. D: Cecilio Escobar DO TD: 18:39 JOB #: [id number] Electronically signed by: CECILIO ESCOBAR DO 04/09/17 09:04 Transcribed by: yesika 04/06/2017 23:10 CBC Collected: 04/05/2017 Status: F Source: DANIEL LEDEZMA 3:40 PM [facility] REPOSITORY TYPE CODE TESTS RESULT OUT OF RANGE REFERENCE UNITS LAB CBC(LOINC) CBC Result Comment: CBC-COMPLETE BLOOD COUNT LAB WBC(LOINC) 4.5 - 10.8 x 10EE3/UL WBC 7.2 LAB RBC(LOINC) 4.10 - x 10EE6/UL 5.30 RBC 4.21 LAB HEMOGLOBIN(LOINC) 12.0 - g/dl 16.0 HEMOGLOBIN 13.8 LAB HEMATOCRIT(LOINC) 34.0 - % 46.0 HEMATOCRIT 39.0 LAB MCV(LOINC) 80 - 99 fl MCV 93 LAB MCH(LOINC) 27 - 33 pg MCH 33 LAB MCHC(LOINC) 32 - 36 X10 3 MCHC 35 LAB RDW/CV(LOINC) 12.0 - % 15.6 RDW/CV 12.9 LAB PLATELET(LOINC) 150 - 450 x10EE3/UL PLATELET 238 LAB MPV(LOINC) 6.6 - 10.5 fl MPV 8.3 Result Comment: AUTOMATED DIFFERENTIAL LAB NEUT %(LOINC) 46.0 - 76.0 % NEUT % 50.8 LAB LYMPH %(LOINC) 20.0 - 45.0 % LYMPH % 30.3 LAB MONOS %(LOINC) 0.0 - 10.0 % MONOS % High 11.9 LAB EO %(LOINC) 0.0 - 7.0 % EO % 6.2 LAB BASO %(LOINC) 0.0 - 2.0 % BASO % 0.8 LAB Lymph #(LOINC) 0.80 - 2.80 x10EE3/U L Lymph # 2.20 LAB Neut #(LOINC) 1.50 - 7.10 x10EE3/U L Neut # 3.70 LAB [place] #(LOINC) 0.20 - 1.00 x10EE3/U L [place] # 0.90 LAB EO #(LOINC) 0.00 - 0.50 x10EE3/U L EO # 0.40 LAB Baso #(LOINC) 0.00 - 0.10 x10EE3/U L Baso # 0.10 LAB MANUAL DIFF(LOINC) MANUAL DIFF N/A LAB MORPHOLOGY(LOINC ) MORPHOLOGY N/A Result Comment: {CD] Performed By: #### [id number] #### [facility],[address] [place] [address] ALLERGIES ALLERGIES DATE TYPE / CODE NAME / CODE REACTION SEVERITY SOURCE Drug SULFA NAUSEA; S/S Moderate [facility] Allergy/[id number](S (sulfonamid WORSEN WITH ([facility]) e)/[id number] THIS DRUG PER Modifier) Hospital (RXNORM) PT (Qualifier Repository Value) Drug CODEINE/000 NAUSEA, Moderate Daniel Pomerene Allergy/880894057(S 40116(RXNOR VOMITING; ([facility]) M) VOMITING, Modifier) Hospital /MIGRAIN TYPE (Qualifier Repository HEADACHES Value) Drug METHOTREXAT Moderate Daniel Pome[place] Allergy/284228034(S E/92111440( ([facility]) RXNORM) Modifier) Hospital (Qualifier Repository Value) Drug NIACIN/0000 Moderate Daniel Pomerene Allergy/117738784(S 1309(RXNORM ([facility]) ) Modifier) Hospital (Qualifier Repository Value) Drug PRAMIPEXOLE Moderate Daniel Pomerene Allergy/117147468(S /58316868(R ([facility]) XNORM) Modifier) Hospital (Qualifier Repository Value) Environmental TAPE Moderate Daniel Pomerene Allergy/984441950(S ([facility]) Modifier) Hospital (Qualifier Repository Value) Drug NIASPAN/000 Moderate Daniel Pomerene Allergy/776083897(S 93099(RXNOR ([facility]) M) Modifier) Hospital (Qualifier Repository Value) Drug REGLAN/0001 Moderate Daniel Pomerene Allergy/026095141(S 0793(RXNORM ([facility]) ) Modifier) Hospital (Qualifier Repository Value) ENCOUNTERS ENCOUNTERS ADMIT/DISCHARGE ACCOUNT ADMITTING ENCOUNTER LOCATION SOURCE NUMBER CLASS 04/06/2018/ [id number] Julio Cesar GODINEZ BuildinR Daniel Pomerene 9 FELICIA carrilloom: ERBed: F [facility] Repository 04/02/2018 [id number] Ambulatory Uyen Uyen 8 [facility] ing:MTLAB Repository 03/26/2018/ [id number] APOORVA, Ambulatory Daniel Pomerene 9 ADILENE [facility] Repository 03/17/2018/ [id number] ERIC Ambulatory [facility] 03/14/2018 [id number] APOORVA, Ambulatory Daniel Pomerene ADILENE [facility] Repository 03/14/2018 [id number] RUFINA GERARD Ambulatory Danielbhupendra Chungvalentine [facility] Repository 12/26/2017/ [id number] ERIC Ambulatory Daniel Pomerene 8 [facility] Repository 10/17/2017/ [id number] RUFINA GERARD Ambulatory BuildinR Daniel Cueto MD oom: [address] [place] [address] Repository 10/02/2017 [id number] Ambulatory [place] Uyen 4 [facility] ing:LAB Repository 09/17/2017/ [id number] RUFINA GERARD Ambulatory Daniel Pomerene 8 [facility] Repository 09/17/2017/ [id number] MARCO ANTONIO GERARDRICARDO Ambulatory Daniel Pomerene 8 [facility] Repository 08/07/2017/ [id number] DR RIZWAN ROSS Emergency [address]in[address] [place] [address] oom: ERBed: [facility] Repository 07/04/2017 [id number] Ambulatory [place] 4 [facility] ing:LAB Repository 05/02/2017 [id number] Ambulatory Uyen [place] 2 [facility] ing:MTLAB Repository 04/05/2017/ [id number] APOORVA, Ambulatory BuildinR Daniel HEAD MD oom: [address] [place] [address] Repository PAYERS PAYERS ENCOUNTER GUARANTOR PAYER SUBSCRIBER SOURCE 04/06/2018 SHANIA Primary SHANIA A Daniel Pomerene HOLDERBAUMDOB: Insurance:HUMANA HOLDERBAUMDOB: [facility] MEDICARE ADVANTAGE [id number] [facility] [address] [address], [place] [address]Mch: Number: [place] [id number] () Date:Plan Name: 04/02/2018 SHANIA A Primary SHANIA A Uyen [id number] Insurance:HUMANA HOLDERBAUMDOB: [facility] [address], MEDICARE [facility] [id number] [facility] [address]Aao: Number: Repository [id number] (HP) Date:1353-42-01[id number] [place] [address]JS: 04/02/2018 Secondary NOT GIVENUNK [place] Insurance:SELF PAY [facility] Number: Effective Repository Date:2018-04-02 03/26/2018 SHANIA Ledezma HOLDERBAUMDOB: Insurance:HUMANA HOLDERBAUMDOB: [facility] MEDICARE ADVANTAGE [id number] Hospital [address], OUTPATIENTPolicy 0 [address], [place] [address]Kvp: [place]: [place] [id number] (HP) Date:Plan Name: 03/17/2018 SHANIA Ledezma HOLDERBAUMDOB: Insurance:ANTHEM BLUE HOLDERBAUMDOB: [facility] CROSS MEDICARE [id number] Hospital [address], OUTPATIENTPolicy 0 [address], [place] [address]Crm: Number: [place] [id number] (HP) Date:Plan Name: 03/14/2018 SHANIA Ledezma HOLDERBAUMDOB: Insurance:ANTHBARNEY HOLDERBAUMDOB: [facility] MEDICARE [id number] Hospital [address], ADVANTAGPolicy Number: 0 [address], [place] [address]Wpq: [id number] [place] [address] Date:6931-37-31Pntz () Name: 03/14/2018 SHANIA Ledezma HOLDERBAUMDOB: Insurance:ANTHBARNEY MEADOWSBAUMDOB: [facility] MEDICARE [id number] Hospital [address], ADVANTAGPolicy Number: 0 [address], [place] [address]Avg: [id number] [place] [address] Date:4035-15-03Bfox () Name: 12/26/2017 SHANIA Primary SHANIA Ledezma HOLDERBAUMDOB: Insurance:JOCELIN MEADOWSBAUMDOB: [facility] CROSS MEDICARE [id number] Hospital [address], OUTPATIENTPolicy 0 [address], [place] [address]Vmu: Number: Id [id number] () Date:Plan Name: 10/17/2017 SHANIA Primary SHANIA Ledezma HOLDERBAUMDOB: Insurance:JOCELIN MEADOWSBAUMDOB: [facility] CROSS MEDICARE [id number] Hospital [facility] OUTPATIENTPolicy 0 [facility] [place]ository [place] [address]Bpy: Number: [facility], Id [id number] () Date:Plan Name: 10/02/2017 Shania Primary Shania Qiu [id number] Insurance:JOCELIN BaileyDOB: Community [address], MEDICARE PPOPolicy [id number] [place] [address]Kyq: Number: Repository [id number] () Date:[id number] [address]FG: 10/02/2017 Secondary NOT GIVENUNK Uyen Insurance:SELF PAY [facility] Number: Effective Repository Date:2017-10-02 09/17/2017 SHANIA Primary SHANIA Ledezma HOLDERBAUMDOB: Insurance:JOCELIN BAILEYDOB: [facility] MEDICARE [id number], ADVANTAGPolicy Number: 0 CR [facility], Repository [place] [address]Vzt: [id number] [place] [address] Date:6179-61-73Eagi (HP) Name:B2 09/17/2017 SHANIA Primary SHANIA Daniel Blackne HOLDERBAUMDOB: Insurance:JOCELIN CORNEJO HOLDERBAUMDOB: [facility] CROSS MEDICARE [id number] Hospital [address] [address] [address], [place] [address]Pbk: Number: Id [id number] () Date:Plan Name: 08/07/2017 SHANIA Primary SHANIA A Daniel Blackne HOLDERBAUMDOB: Insurance:ANTHBRANEY CORNEJO HOLDERBAUMDOB: [facility] CROSS MEDICARE [id number] Hospital [address] [facility], PHYS[address] Repository [place] [address]Jxi: Number: [facility], Id [id number] () Date:Plan Name: 08/07/2017 Secondary SHANIA A Daniel Blackne Insurance:JOCELIN MEADOWSBAUMDOB: [facility] CROSS MEDICARE [id number] [place] [address] [place]: [place] [id number] Date:Plan Name: 07/04/2017 Shania Primary Shania [place] [id number] Insurance:ANTHBARNEY HolderbaumDOB: [facility] PPOPolicy [id number] [place] [address]Saa: Number: Repository [id number] () Date:[id number] [address]UQ: 07/04/2017 Secondary NOT GIVENUNK Uyen Insurance:SELF PAY [facility] Number: Effective Repository Date:2017-07-04 05/02/2017 Shania Primary Shania [place] [id number] Insurance:ANTHEM HolderbaumDOB: [facility] [address], MEDICARE PPOPolicy [id number] [place] [address]Ioc: Number: Repository [id number] (HP) Date:8393-61-03[address]SMDVQHR [place] [address]TF: 05/02/2017 Secondary NOT GIVENUNK [place] Insurance:SELF PAY [facility] Number: Effective Repository Date:2017-05-02 04/05/2017 SAHNIA Primary SHANIA Daniel Ledezma HOLDERBAUMDOB: Insurance:JOCELIN CORNEJO HOLDERBAUMDOB: [facility] CROSS MEDICARE [id number] [facility], [address] [facility], Repository [place] [address]Thw: Number: Id [id number] (HP) Date:Plan Name:B3
== END ==
PROVIDERS: Family Provider Internal Medicine Infectious Disease; PCP Internal Medicine Infectious Disease; Referring Provider Internal Medicine Rheumatology; Visit Provider Internal Medicine Rheumatology
DX: M06.09 Rheumatoid arthritis without rheumatoid factor, multiple sites (principal); M79.7 Fibromyalgia; M18.12 Unilateral primary osteoarthritis of first carpometacarpal joint, left hand; K21.0 Gastro-esophageal reflux disease with esophagitis; I10 Essential (primary) hypertension; E11.9 Type 2 diabetes mellitus without complications; F41.9 Anxiety disorder, unspecified; G62.9 Polyneuropathy, unspecified; E78.5 Hyperlipidemia, unspecified; I25.10 Atherosclerotic heart disease of native coronary artery without angina pectoris; K57.30 Diverticulosis of large intestine without perforation or abscess without bleeding; Z79.899 Other long term (current) drug therapy
CPT/HCPCS: 36415; 73030; 80053; 85025; 86480

== ENCOUNTER → 2018-10-04 | Outpatient (CLI) | payer MEDICARE, SELFPAY ==
[2018-10-04 14:11] LABS: Absolute Lymphocyte Count 2.23 X10^3/uL (0.83-4.51); Basophil# 0.06 X10^3/uL; Basophil% 0.7 % (0-1); Eosinophil# 0.94 X10^3/uL; Eosinophils% 11.4 % (0-5); Hematocrit 38.2 % (37-47); Hemoglobin 12.4 g/dL (12.0-15.0); Lymphocyte # 2.23 X10^3/ul (4.0); Mean Corp Hgb Conc 32.5 g/dL (32-36); Mean Corpuscular Hgb 29.1 pg (27.0-32.0); Mean Corpuscular Volume 89.7 fL (81-99); Mean Platelet Vol. 9.8 fl (6.2-12.0); Monocyte# 0.97 X10^3/uL; Monocyte% 11.7 % (0-10); NRBC Flagged by Analyzer 0 % (0-5); Neutrophil # 4.02 X10^3/uL (2.7-7.7); Neutrophil % 48.7 % (47-70); Platelet Count 252 K/mm3 (150-450); RBC Distribution Width CV 13.4 % (11.6-14.6); RBC Distribution Width SD 43.7 fl (35.1-43.9); Red Blood Count 4.26 M/mm3 (4.2-5.4); White Blood Count 8.3 K/mm3 (4.4-11.0)
[2018-10-04 14:14] LABS: ALB/GLOB Ratio 0.8 RATIO (0.9-2.4); AST(SGOT) 9 U/L (15-37); Alanine Aminotransfer ALT/SGPT 14 U/L (13-56); Albumin, Serum 3.5 g/dL (3.2-5.0); Alkaline Phosphatase 74 U/L (45-117); Anion Gap 7 (5-15); BUN 19 mg/dL (7-18); Calcium,Total 8.8 mg/dL (8.5-10.1); Chloride 113 mmol/L (98-107); EST Glomerular Filtration Rate 59 mL/min (>60); Est Glom Filt Rate - Afr Amer 72 mL/min (>60); Globulin 4.2 g/dL (2.2-4.2); Glucose 116 mg/dL (74-106); Potassium 4.1 mmol/L (3.5-5.1); Protein, Total 7.7 g/dL (6.4-8.2); Sodium Level 142 mmol/L (136-145)
== END | disposition home or self-care (01) ==
PROVIDERS: Family Provider Internal Medicine Infectious Disease; PCP Internal Medicine Infectious Disease; Visit Provider Internal Medicine Rheumatology
DX: M06.09 Rheumatoid arthritis without rheumatoid factor, multiple sites (principal); M79.7 Fibromyalgia; M25.511 Pain in right shoulder; M18.12 Unilateral primary osteoarthritis of first carpometacarpal joint, left hand; K21.0 Gastro-esophageal reflux disease with esophagitis; I10 Essential (primary) hypertension; E11.9 Type 2 diabetes mellitus without complications; K57.90 Diverticulosis of intestine, part unspecified, without perforation or abscess without bleeding; E78.5 Hyperlipidemia, unspecified; I25.10 Atherosclerotic heart disease of native coronary artery without angina pectoris; G62.9 Polyneuropathy, unspecified; Z79.899 Other long term (current) drug therapy
CPT/HCPCS: 36415; 80053; 85025

== ENCOUNTER 2021-05-24 11:03 | Outpatient (CLI) | payer MEDICARE, SELFPAY ==
[2021-05-24 12:17] LABS: Erythrocyte Sedimentation Rate 40 mm/hr (0-30)
[2021-05-24 12:20] LABS: Absolute Neutrophil Count 4.1 X10^3/uL (2.0-7.7); Basophil# 0.06 X10^3/uL; Basophil% 0.8 % (0-1); Eosinophil# 0.34 X10^3/uL; Eosinophils% 4.8 % (0-5); Hematocrit 38.9 % (37-47); Hemoglobin 13.4 g/dL (12.0-15.0); Lymphocyte % 26.9 % (19-41); Mean Corp Hgb Conc 34.4 g/dL (32-36); Mean Corpuscular Hgb 31.9 pg (27.0-32.0); Mean Corpuscular Volume 92.6 fL (81-99); Monocyte# 0.65 X10^3/uL; Monocyte% 9.2 % (0-10); NRBC Flagged by Analyzer 0 % (0-5); Neutrophil # 4.09 X10^3/uL (2.7-7.7); Platelet Count 255 K/mm3 (150-450); RBC Distribution Width CV 12.3 % (11.6-14.6); RBC Distribution Width SD 41.9 fl (35.1-43.9); White Blood Count 7.1 K/mm3 (4.4-11.0)
[2021-05-24 12:50] LABS: AST(SGOT) 14 U/L (15-37); Alanine Aminotransfer ALT/SGPT 18 U/L (13-56); Albumin, Serum 3.7 g/dL (3.2-5.0); Alkaline Phosphatase 48 U/L (45-117); Anion Gap 6 (5-15); BUN 7 mg/dL (7-18); BUN/Creat Ratio 6.2 RATIO (10-20); Calcium,Total 9.1 mg/dL (8.5-10.1); Chloride 107 mmol/L (98-107); Creatinine, Serum 1.13 mg/dL (0.55-1.02); EST Glomerular Filtration Rate 51 mL/min (>60); Est Glom Filt Rate - Afr Amer 62 mL/min (>60); Globulin 3.8 g/dL (2.2-4.2); Glucose 83 mg/dL (74-106); Potassium 3.9 mmol/L (3.5-5.1); Protein, Total 7.5 g/dL (6.4-8.2); Sodium Level 141 mmol/L (136-145)
[2021-05-29 12:09] LABS: QNTFERON TB Mitogen Value > 10.00 IU/mL (.); QNTFERON TB Nil Value 0.02 IU/mL (.); QNTFERON TB1+ Ag Value 0.02 IU/mL (.); QNTFERON TB2+ Ag Value 0.01 IU/mL (.)
[2021-05-29 13:26] LABS: QNTIFERON TB Positive Criteria Negative (Negative)
== END 2021-05-24 23:59 | disposition home or self-care (01) ==
LOC: MTLAB 11:07
PROVIDERS: PCP Internal Medicine Infectious Disease; Referring Provider Internal Medicine Rheumatology; Visit Provider Internal Medicine Rheumatology
DX: M06.00 Rheumatoid arthritis without rheumatoid factor, unspecified site (principal); E11.9 Type 2 diabetes mellitus without complications; M79.7 Fibromyalgia; M18.12 Unilateral primary osteoarthritis of first carpometacarpal joint, left hand; I10 Essential (primary) hypertension; F41.9 Anxiety disorder, unspecified; E78.5 Hyperlipidemia, unspecified; Z79.899 Other long term (current) drug therapy
CPT/HCPCS: 36415; 80053; 85025; 85652; 86140; 86480